=== PATIENT | female | born 1960 | race Caucasian/White ===

== ENCOUNTER 2016-06-26 04:35 | Emergency (ER) | payer OTHER ==
[~2016-06-26] VITALS: Ht 154.9 cm; Wt 65.0 kg
[~2016-06-26 04:35] MED LIST: ADVAI250I INH; ALBU6.7H INH; ALBU8I INH; PRED5 PO; SYMB160A INH; ZITH250T PO
[2016-06-26 04:40] VITALS: BP 138/99; PULSE 102; RESP 16; TEMP 98.1; O2SAT 95
[2016-06-26] MEDS ORDERED: ALBU6.7H INH (04:48)
--- NOTE | 2016-06-26 04:54 | PD ---
HPI Chief Complaint: Injury Time Seen by Provider: 04:49 Travel History International Travel<30 days: No Contact w/Intl Traveler<30days: No Traveled to known affect area: No History of Present Illness HPI 55-year-old female in [facility] woke up for a couple for a cold right foot. She called EMS. He is diabetic. She smokes tobacco. She tried wrapping her feet with toilet paper which was marginally helpful. Temperature outside reported to be 43 degrees. PFSH Past Medical History Arthritis: Yes Asthma: Yes Autoimmune Disease: No Blood Disorders: No Anxiety: No Depression: No Heart Rhythm Problems: No Cancer: No Cardiovascular Problems: Yes (See EMR) High Cholesterol: No Chemotherapy: No Chest Pain: Yes Congestive Heart Failure: No COPD: Yes Cerebrovascular Accident: No Diabetes: Yes Patient Takes Glucophage: No Diminished Hearing: No Endocrine: Yes Gastrointestinal Disorders: No GERD: No Glaucoma: No Genitourinary: No Headaches: No Hepatitis: No Hiatal Hernia: No Hypertension: Yes Immune Disorder: No Implanted Vascular Access Dvce: No Kidney Stones: No Musculoskeletal: Yes Neurologic: Yes Psychiatric: Yes (Reported history of treatment for depression, Schizophrenia, paranoid type) Reproductive: No Respiratory: Yes (COPD) Immunizations Current: No Migraines: No Myocardial Infarction: No Pneumonia: Yes Radiation Therapy: No Renal Failure: No Seizures: No Sickle Cell Disease: No Sleep Apnea: No Thyroid Disease: No Ulcer: No PNEUMOCCOCAL Vaccine (Year): 1 ?: Not Menopausal: Yes : 1 Para: 1 Past Surgical History Abdominal Surgery: Yes AICD: No Appendectomy: Yes Arteriovenous Shunt: No Cardiac Surgery: No Section: Yes (1986) Cholecystectomy: No Ear Surgery: No Endocrine Surgery: No Eye Surgery: No Genitourinary Surgery: No Gynecologic Surgery: Yes Insulin Pump: No Joint Replacement: No Neurologic Surgery: Yes (HX. SKULL FX) Oral Surgery: Yes Pacemaker: No Thoracic Surgery: No Tonsillectomy: Yes Other Surgery: Yes (RIGHT FOREARM SUTURES) Social History Alcohol Use: No Tobacco Use: Yes (1 PPD) Substance Use: No Allergies-Medications (Allergen,Severity, Reaction): Coded Allergies: Iodinated Contrast Media (Verified Allergy, Severe, BLACKS OUT, 06/26/16) Sulfa (Verified Allergy, Severe, HEADACHES, NAUSEA, 06/26/16) Reported Meds & Prescriptions Reported Meds & Active Scripts Active Reported Proventil Hfa 6.7 GM Inh (Albuterol Sulfate) 90 Mcg/Act Aer 2 Puff INH Q4-6H PRN Review of Systems Except as stated in HPI: all other systems reviewed are Neg General / Constitutional: No: Fever, Chills Physical Exam Narrative GENERAL: 55-year-old female, unkempt SKIN: Warm and dry. HEAD: Atraumatic. Normocephalic. EYES: Pupils equal and round. No scleral icterus. No injection or drainage. CARDIOVASCULAR: Regular rate and rhythm. No murmur appreciated. MUSCULOSKELETAL: No obvious deformities. No clubbing. No cyanosis. 2+ DP bilaterally. NEUROLOGIC: AOx3. CN III-XII normal. Ambulatory. Data Data Last Documented VS Vital Signs Date Time Temp Pulse Resp B/P Pulse Ox O2 Delivery O2 Flow Rate FiO2 06/26/16 04:40 98.1 102 16 138/99 95 VS reviewed Orders Albuterol Hfa Inh (Proair Hfa Inh) (06/26/16 05:00) MDM Medical Decision Making Medical Screen Exam Complete: Yes Emergency Medical Condition: Yes Medical Record Reviewed: Yes Differential Diagnosis Chilbains, hatch bite, arterial occlusion, claudication Narrative Course Vasculature intact. Feet warm to palpation. Sensation intact about the feet. Socks provided. Diagnosis Primary Impression: chronic homelessness Additional Impression: Cold feet Referrals: Primary Care Physician 2 days Additional Instructions: You have a choice when it comes to health care, and we are glad that you chose [facility]. Hopefully, we have met your expectations on today's visit. You are welcome to return to [facility] at any time, as we are committed to meeting the health care needs of our community. Med/Other Pt SpecificInfo: No Change to Meds Disposition: 01 DISCHARGE HOME Condition: Stable Everton Polanco MD Jun 26, 2016 04:54
[2016-06-26] MEDS ORDERED: ALBUTEROL SULFATE 90 MCG/ACT HFA 8 GM INHALER INH ONE (05:00)
== END 2016-06-26 05:35 | disposition home or self-care (01) ==
LOC: NEPC 04:35
DX: R20.8 Other disturbances of skin sensation (principal); E11.9 Type 2 diabetes mellitus without complications; J45.909 Unspecified asthma, uncomplicated; J44.9 Chronic obstructive pulmonary disease, unspecified; I10 Essential (primary) hypertension; F17.210 Nicotine dependence, cigarettes, uncomplicated; Z59.0 Homelessness
CPT/HCPCS: 99283

== ENCOUNTER 2017-02-09 02:10 | Emergency (ER) | payer OTHER ==
[~2017-02-09] VITALS: Ht 152.4 cm; Wt 57.0 kg
[~2017-02-09 02:10] MED LIST changes: -ADVAI250I INH; -ALBU8I INH; -PRED5 PO; -SYMB160A INH; -ZITH250T PO
[2017-02-09] MEDS ORDERED: SODIUM CHLORIDE 0.9% FLUSH 10 ML FLUSH IV FLUSH PRN (02:30)
--- NOTE | 2017-02-09 02:32 | PD ---
HPI Chief Complaint: Abdominal Pain Time Seen by Provider: 02:32 Travel History International Travel<30 days: No Contact w/Intl Traveler<30days: No Traveled to known affect area: No History of Present Illness HPI Patient is a 56-year-old homeless female presents emergency Department with abdominal pain. Patient states she's been coughing and coughed hard enough that she's noticed a lump on her stomach. She called 911 today. She said mild nausea without vomiting no diarrhea no constipation no fevers recently. She also has several other request that she have a breathing treatment for her cough , but she thinks she is coming down with a cold, and a rash. Symptoms started just prior to arrival, PFSH Past Medical History Arthritis: Yes Asthma: Yes Autoimmune Disease: No Blood Disorders: No Anxiety: No Depression: No Heart Rhythm Problems: No Cancer: No Cardiovascular Problems: Yes High Cholesterol: No Chemotherapy: No Chest Pain: Yes Congestive Heart Failure: No COPD: Yes Cerebrovascular Accident: No Diabetes: Yes Patient Takes Glucophage: No Diminished Hearing: No Endocrine: Yes Gastrointestinal Disorders: No GERD: No Glaucoma: No Genitourinary: No Headaches: No Hepatitis: No Hiatal Hernia: No Hypertension: Yes Immune Disorder: No Implanted Vascular Access Dvce: No Kidney Stones: No Musculoskeletal: Yes Neurologic: Yes Psychiatric: Yes (Reported history of treatment for depression, Schizophrenia, paranoid type) Reproductive: No Respiratory: Yes (COPD) Immunizations Current: No Migraines: No Myocardial Infarction: No Pneumonia: Yes Radiation Therapy: No Renal Failure: No Seizures: No Sickle Cell Disease: No Sleep Apnea: No Thyroid Disease: No Ulcer: No Tetanus Vaccination: > 5 Years Influenza Vaccination: Yes PNEUMOCCOCAL Vaccine (Year): 1 Menopausal: Yes : 1 Para: 1 Past Surgical History Abdominal Surgery: Yes AICD: No Appendectomy: Yes Arteriovenous Shunt: No Cardiac Surgery: No Section: Yes (1986) Cholecystectomy: No Ear Surgery: No Endocrine Surgery: No Eye Surgery: No Genitourinary Surgery: No Gynecologic Surgery: Yes Insulin Pump: No Joint Replacement: No Neurologic Surgery: Yes (HX. SKULL FX) Oral Surgery: Yes Pacemaker: No Thoracic Surgery: No Tonsillectomy: Yes Other Surgery: Yes (RIGHT FOREARM SUTURES) Social History Alcohol Use: No Tobacco Use: Yes (1 PPD) Substance Use: Yes (K2) Allergies-Medications (Allergen,Severity, Reaction): Coded Allergies: Iodinated Contrast- Oral and IV Dye (Unverified Allergy, Severe, BLACKS OUT, 02/09/17) Sulfa (Sulfonamide Antibiotics) (Unverified Allergy, Severe, HEADACHES, NAUSEA, 02/09/17) Reported Meds & Prescriptions Reported Meds & Active Scripts Active No Active Prescriptions or Reported Medications Review of Systems Except as stated in HPI: all other systems reviewed are Neg Physical Exam Narrative GENERAL: Well-developed, unkempt, minimal discomfort. SKIN: Focused skin assessment warm/dry. HEAD: Atraumatic. Normocephalic. EYES: Pupils equal and round. No scleral icterus. No injection or drainage. ENT: No nasal bleeding or discharge. Mucous membranes pink and moist. NECK: Trachea midline. No JVD. CARDIOVASCULAR: Regular rate and rhythm. No murmur appreciated. RESPIRATORY: No accessory muscle use. Clear to auscultation. Breath sounds equal bilaterally. GASTROINTESTINAL: Abdomen soft, non-tender, there is a large midline abdominal hernia approximately the size of a basketball, was easily reduced manually without pain medication. Patient states she felt instantly better afterwards.. Hepatic and splenic margins not palpable. MUSCULOSKELETAL: No obvious deformities. No clubbing. No cyanosis. No edema. NEUROLOGICAL: Awake and alert. No obvious cranial nerve deficits. Motor grossly within normal limits. Normal speech. PSYCHIATRIC: Appropriate mood and affect; insight and judgment normal. Data Data Last Documented VS Vital Signs Date Time Temp Pulse Resp B/P (MAP) Pulse Ox O2 Delivery O2 Flow Rate FiO2 02/09/17 04:14 02/09/17 02:37 18 95 Room Air 02/09/17 02:37 98.0 95 Orders Orders Complete Blood Count With Diff (02/09/17 02:19) Comprehensive Metabolic Panel (02/09/17 02:19) Lactic Acid (02/09/17 02:19) Prothrombin Time / Inr (Pt) (02/09/17 02:19) Act Partial Throm Time (Ptt) (02/09/17 02:19) Urinalysis - C+S If Indicated (02/09/17 02:19) Iv Access Insert/Monitor (02/09/17 02:19) Ecg Monitoring (02/09/17 02:19) Oximetry (02/09/17 02:19) Sodium Chloride 0.9% Flush (Ns Flush) (02/09/17 02:30) Electrocardiogram (02/09/17 02:19) Albuterol-Ipratropium Neb (Duoneb Neb) (02/09/17 02:45) Mandatory Outpatient Referral (02/09/17 03:28) Labs Laboratory Tests Test 02/09/17 02:24 02/09/17 02:30 Urine Color YELLOW Urine Turbidity HAZY Urine pH 7.0 Urine Specific [place] 1.017 Urine Protein TRACE mg/dL Urine Glucose (UA) NEG mg/dL Urine Ketones NEG mg/dL Urine Occult Blood SMALL Urine Nitrite NEG Urine Bilirubin NEG Urine Urobilinogen LESS THAN 2.0 MG/DL Urine Leukocyte Esterase NEG Urine RBC 17 /hpf Urine WBC 2 /hpf Urine Squamous Epithelial Cells <1 /hpf Urine Amorphous Sediment RARE Urine Mucus FEW /lpf Microscopic Urinalysis Comment CULT NOT INDICATED White Blood Count 11.9 TH/MM3 Red Blood Count 5.50 MIL/MM3 Hemoglobin 17.3 GM/DL Hematocrit 51.7 % Mean Corpuscular Volume 93.9 FL Mean Corpuscular Hemoglobin 31.4 PG Mean Corpuscular Hemoglobin Concent 33.5 % Red Cell Distribution Width 14.5 % Platelet Count 270 TH/MM3 Mean Platelet Volume 7.3 FL Neutrophils (%) (Auto) 68.9 % Lymphocytes (%) (Auto) 21.4 % Monocytes (%) (Auto) 5.7 % Eosinophils (%) (Auto) 3.3 % Basophils (%) (Auto) 0.7 % Neutrophils # (Auto) 8.2 TH/MM3 Lymphocytes # (Auto) 2.6 TH/MM3 Monocytes # (Auto) 0.7 TH/MM3 Eosinophils # (Auto) 0.4 TH/MM3 Basophils # (Auto) 0.1 TH/MM3 CBC Comment DIFF FINAL Differential Comment Prothrombin Time 10.4 SEC Prothromb Time International Ratio 0.9 RATIO Activated Partial Thromboplast Time 28.1 SEC Blood Urea Nitrogen 21 MG/DL Creatinine 0.53 MG/DL Random Glucose 81 MG/DL Total Protein 7.4 GM/DL Albumin 3.0 GM/DL Calcium Level 8.7 MG/DL Alkaline Phosphatase 96 U/L Aspartate Amino Transf (AST/SGOT) 43 U/L Alanine Aminotransferase (ALT/SGPT) 19 U/L Total Bilirubin 0.3 MG/DL Sodium Level 138 MEQ/L Potassium Level 5.0 MEQ/L Chloride Level 101 MEQ/L Carbon Dioxide Level 33.5 MEQ/L Anion Gap 4 MEQ/L Estimat Glomerular Filtration Rate 119 ML/MIN Lactic Acid Level 0.9 mmol/L MDM Medical Decision Making Medical Screen Exam Complete: Yes Emergency Medical Condition: Yes Differential Diagnosis Hernia, COPD, homelessness, acute abdomen unlikely. Narrative Course Patient roomed emergency department, hernia was reduced, discussed need for follow-up with a primary care physician and surgeon. She was given a breathing treatment at her request. Her lungs were clear and oxygenation was adequate. She is stable for discharge at this time. Diagnosis Primary Impression: Abdominal pain Additional Impression: Ventral hernia Referrals: Dio Sauceda MD Patient Assistance Program Scripts No Active Prescriptions or Reported Meds Disposition: 01 DISCHARGE HOME Condition: Stable Nikolas Olivier MD Feb 09, 2017 02:32
[2017-02-09 02:37] VITALS: BP 157/85; PULSE 95; RESP 18; TEMP 98; O2SAT 95
[2017-02-09 02:45] LABS: AUTOMATED NEUTROPHIL # 8.2 TH/MM3 (1.8-7.7); BASOPHIL # 0.1 TH/MM3 (0-0.2); BASOPHIL % 0.7 % (0.0-2.0); EOSINOPHIL # 0.4 TH/MM3 (0-0.4); EOSINOPHIL % 3.3 % (0.0-4.0); HEMATOCRIT 51.7 % (35.0-46.0); HEMO FLAGS DIFF FINAL; LYMPH % 21.4 % (9.0-44.0); LYMPHOCYTE # 2.6 TH/MM3 (1.0-4.8); MEAN CELL VOLUME 93.9 FL (80.0-100.0); MEAN CORPUSCULAR HEMOGLOBIN 31.4 PG (27.0-34.0); MEAN CORPUSCULAR HGB CONC 33.5 % (32.0-36.0); MONO % 5.7 % (0.0-8.0); NEUT % 68.9 % (16.0-70.0); PLATELET COUNT 270 TH/MM3 (150-450); RED CELL DISTRIBUTION WIDTH 14.5 % (11.6-17.2); WHITE BLOOD COUNT 11.9 TH/MM3 (4.0-11.0)
[2017-02-09] MEDS ORDERED: RESP: ALBUTEROL 2.5 MG/IPRATROPIUM 0.5 MG NEB (SCH) NEB ONE (02:45)
[2017-02-09 02:47] LABS: BLOOD, URINE SMALL (NEG); COMMENT (UR) CULT NOT INDICATED; CULTURE IF INDICATED CULT NOT INDICATED; GLUCOSE,URINE NEG (NEG); KETONE, URINE NEG (NEG); MUCUS URINE FEW /lpf (OCC); NITRITE,URINE NEG (NEG); SQUAMOUS EPITHELIAL CELL URINE <1 /hpf (0-5); URINE COLOR YELLOW (YELLW/STRAW)
[2017-02-09 03:10] LABS: APTT (PATIENT) 28.1 SEC (24.3-30.1); INTERNATIONAL NORMALIZED RATIO 0.9 RATIO; PROTHROMBIN TIME - PATIENT 10.4 SEC (9.8-11.6)
[2017-02-09 03:15] LABS: ALKALINE PHOSPHATASE 96 U/L (45-117); TOTAL BILIRUBIN ADULT 0.3 MG/DL (0.2-1.0)
[2017-02-09 03:17] LABS: ALT (GPT) 19 U/L (10-53); ANION GAP 4 MEQ/L (5-15); AST (GOT) 43 U/L (15-37); BICARBONATE 33.5 MEQ/L (21.0-32.0); BLOOD UREA NITROGEN 21 MG/DL (7-18); CHLORIDE 101 MEQ/L (98-107); GLOMERULAR FILTRATION RATE 119 ML/MIN (>89); SODIUM (NA) 138 MEQ/L (136-145)
--- NOTE | 2017-02-09 18:18 | EKG ---
Date Performed: 02/09/2017 Time Performed: 02:34:40 PTAGE: 56 years EKG: Sinus rhythm WITH MARKED SINUS ARRHYTHMIA BORDERLINE ECG SINCE PREVIOUS TRACING 01/27/2016, SINUS ARRHYTHMIA IS NEW. PREVIOUS TRACIN01/27/2016 03.37 DOCTOR: Rodri Starr Interpretating Date/Time 02/09/2017 18:16:47
== END 2017-02-09 04:15 | disposition home or self-care (01) ==
LOC: NEPE 02:10
DX: K43.9 Ventral hernia without obstruction or gangrene (principal); R05 Cough; I49.8 Other specified cardiac arrhythmias; M19.90 Unspecified osteoarthritis, unspecified site; J44.9 Chronic obstructive pulmonary disease, unspecified; E11.9 Type 2 diabetes mellitus without complications; I10 Essential (primary) hypertension; F20.9 Schizophrenia, unspecified; F17.200 Nicotine dependence, unspecified, uncomplicated
CPT/HCPCS: 80053; 81001; 83605; 85025; 85610; 85730; 93005; 94664; 99284

== ENCOUNTER 2017-02-20 18:43 | Emergency (ER) | payer OTHER ==
[~2017-02-20] VITALS: Ht 154.9 cm; Wt 50.0 kg
[2017-02-20 18:47] VITALS: BP 186/101; TEMP 98.4; O2SAT 95
--- NOTE | 2017-02-20 19:09 | PD ---
Physical Exam Date Seen by Provider: Feb 20, 2017 Time Seen by Provider: 19:07 Narrative 56 yo female here for evaluation of lower leg swelling and pain. Has had this for a few days. Possible insect bites. having drainage as well. Erythematous and painful. No fevers, chills or sweats. Vitals stable in triage. Awaiting bed placement. Data Data Last Documented VS Vital Signs Date Time Temp Pulse Resp B/P (MAP) Pulse Ox O2 Delivery O2 Flow Rate FiO2 02/20/17 18:47 98.4 100 16 186/101 (129) 95 MDM Medical Record Reviewed: Yes Supervised Visit with DEBBY: No Scripts No Active Prescriptions or Reported Meds Mike Hogan Feb 20, 2017 19:09
--- NOTE | 2017-02-20 19:42 | PD ---
HPI Chief Complaint: Skin Problem Time Seen by Provider: 19:41 Travel History International Travel<30 days: No Contact w/Intl Traveler<30days: No Traveled to known affect area: No History of Present Illness HPI 56-year-old female who is homeless, presents to the emergency department for evaluation of what she believes is an infection on her feet. Patient walks a lot. She wears flip-flops. She does have scattered lesions over her feet and lower extremities. She denies any injury. No fever or chills. States the pain is an 8 out of 10 in her feet and she is unable to walk due to this pain, however the patient walked into the emergency department, pushing a large cart. States this has been ongoing for weeks. She denies any other symptoms at this time. PFSH Past Medical History Arthritis: Yes Asthma: Yes Autoimmune Disease: No Blood Disorders: No Anxiety: No Depression: No Heart Rhythm Problems: No Cancer: No Cardiovascular Problems: Yes High Cholesterol: No Chemotherapy: No Chest Pain: Yes Congestive Heart Failure: No COPD: Yes Cerebrovascular Accident: No Diabetes: Yes Patient Takes Glucophage: No Diminished Hearing: No Endocrine: Yes Gastrointestinal Disorders: No GERD: No Glaucoma: No Genitourinary: No Headaches: No Hepatitis: No Hiatal Hernia: No Hypertension: Yes Immune Disorder: No Implanted Vascular Access Dvce: No Kidney Stones: No Musculoskeletal: Yes Neurologic: Yes Psychiatric: Yes (Reported history of treatment for depression, Schizophrenia, paranoid type) Reproductive: No Respiratory: Yes (COPD) Immunizations Current: No Migraines: No Myocardial Infarction: No Pneumonia: Yes Radiation Therapy: No Renal Failure: No Seizures: No Sickle Cell Disease: No Sleep Apnea: No Thyroid Disease: No Ulcer: No Tetanus Vaccination: > 5 Years PNEUMOCCOCAL Vaccine (Year): 1 Menopausal: Yes : 1 Para: 1 Past Surgical History Abdominal Surgery: Yes AICD: No Appendectomy: Yes Arteriovenous Shunt: No Cardiac Surgery: No Section: Yes (1986) Cholecystectomy: No Ear Surgery: No Endocrine Surgery: No Eye Surgery: No Genitourinary Surgery: No Gynecologic Surgery: Yes Insulin Pump: No Joint Replacement: No Neurologic Surgery: Yes (HX. SKULL FX) Oral Surgery: Yes Pacemaker: No Thoracic Surgery: No Tonsillectomy: Yes Other Surgery: Yes (RIGHT FOREARM SUTURES) Social History Alcohol Use: No Tobacco Use: Yes (1 PPD) Substance Use: Yes (K2) Allergies-Medications (Allergen,Severity, Reaction): Coded Allergies: Iodinated Contrast- Oral and IV Dye (Unverified Allergy, Severe, BLACKS OUT, 02/20/17) Sulfa (Sulfonamide Antibiotics) (Unverified Allergy, Severe, HEADACHES, NAUSEA, 02/20/17) Reported Meds & Prescriptions Reported Meds & Active Scripts Active Clindamycin (Clindamycin HCl) 150 Mg Cap 300 Mg PO Q6H 10 Days Review of Systems Except as stated in HPI: all other systems reviewed are Neg Physical Exam Narrative GENERAL: Unkempt female patient, ambulatory and in no acute distress. SKIN: Focused skin assessment warm/dry. Patient does have scabbed lesions over the dorsal feet and lower extremities. Mild erythema surrounding them. HEAD: Normocephalic. EYES: No scleral icterus. No injection or drainage. NECK: Supple, trachea midline. No JVD or lymphadenopathy. CARDIOVASCULAR: Regular rate and rhythm without murmurs, gallops, or rubs. RESPIRATORY: Breath sounds equal bilaterally. No accessory muscle use. GASTROINTESTINAL: Abdomen rotund, soft. MUSCULOSKELETAL: No cyanosis. Patient has 1+ edema of the bilateral lower extremities. It is nonpitting. There is mild erythema surrounding the scabbed lesions. No fluctuance. No drainage. BACK: Nontender without obvious deformity. No CVA tenderness. Data Data Last Documented VS Vital Signs Date Time Temp Pulse Resp B/P (MAP) Pulse Ox O2 Delivery O2 Flow Rate FiO2 02/20/17 19:59 02/20/17 18:47 98.4 100 16 95 Orders Orders Clindamycin (Cleocin) (02/20/17 19:45) Ketorolac Inj (Toradol Inj) (02/20/17 19:45) [facility] Medical Decision Making Medical Screen Exam Complete: Yes Emergency Medical Condition: Yes Medical Record Reviewed: Yes Differential Diagnosis Cellulitis versus folliculitis versus insect bites versus contact dermatitis Narrative Course 56-year-old female presents to emergency department for evaluation of bilateral foot pain. Patient is ambulatory without difficulty. I have counseled her on wound care at the scabbed lesions of her lower extremities. I will treat her for cellulitis due to the localized blanchable erythema associated with them. I 've also encouraged her to elevate her lower extremities due to the trace edema. She is given a first dose of antibiotics here. She'll be discharged at this time with instruction to return immediately with any acute worsening of symptoms. Diagnosis Primary Impression: Bilateral lower leg cellulitis Additional Impressions: Skin lesion of left lower extremity Skin lesion of right lower extremity chronic homelessness Referrals: Primary Care Physician Patient Instructions: Acute Wound Care (GEN), General Instructions Additional Instructions: Elevate lower extremities Keep wounds clean Follow-up with a primary care provider Start antibiotic in the morning and take it until it is all gone Return immediately to the emergency department with any acute worsening of symptoms Med/Other Pt SpecificInfo: Prescription(s) given Scripts Clindamycin (Clindamycin) 150 Mg Cap 300 MG PO Q6H for Infection for 10 Days, #80 CAP 0 Refills Prov: Lilliam Case 02/20/17 Disposition: 01 DISCHARGE HOME Condition: Stable Lilliam Case Feb 20, 2017 19:42
[2017-02-20] MEDS ORDERED: KETOROLAC TROMETHAMINE 60 MG/2 ML (IM) VIAL IM ONE (19:45)
[2017-02-20] MEDS ORDERED: CLINDAMYCIN 150 MG CAP PO ONE (19:45)
[2017-02-20] MEDS ORDERED: CLIN1CAP5 PO (19:48)
== END 2017-02-20 20:00 | disposition home or self-care (01) ==
LOC: NEPK 18:43
DX: L03.115 Cellulitis of right lower limb (principal); L03.116 Cellulitis of left lower limb; F17.200 Nicotine dependence, unspecified, uncomplicated; Z59.0 Homelessness
CPT/HCPCS: 96372; 99284; J1885

== ENCOUNTER 2017-06-29 09:06 | Inpatient (IN) | payer OTHER ==
[~2017-06-29] VITALS: Ht 160 cm; Wt 60.5 kg
[2017-06-29] VITALS (22 sets, daily range): BP systolic 63–98; BP diastolic 25–63; PULSE 87–148; RESP 12–21; TEMP 96.4–99.6; O2SAT 91–100
[~2017-06-29 09:06] MED LIST changes: -ALBU6.7H INH; +CLIN150C14 PO
[2017-06-29] MEDS ORDERED: ETOMIDATE 40 MG/20 ML VIAL ONE (09:23)
[2017-06-29] MEDS ORDERED: ROCURONIUM INJ 50 MG/5 ML VIAL ONE (09:24)
[2017-06-29] MEDS ORDERED: NOREPINEPHRINE-DEXTROSE DRIP 250 ML IV PRN (09:45)
[2017-06-29] MEDS ORDERED: TERBUTALINE INJ 1 MG/ML AMP SQ PRN (09:45)
--- NOTE | 2017-06-29 10:13 | RADRPT ---
EXAM DATE/TIME: 06/29/2017 09:39 CORRECTION Corrected on: June 29, 2017; CORRECTION Corrected on: June 29, 2017; [facility] COMPARISON: No previous studies available for comparison. INDICATIONS : Post intubation. MEDICAL HISTORY : none known SURGICAL HISTORY : none known ENCOUNTER: Initial ACUITY: 1 day PAIN SCORE: Non-responsive. LOCATION: Bilateral chest FINDINGS: A single AP supine portable view of the chest was obtained and demonstrates an endotracheal tube in p lace with the tip approximately 4 cm above the miracle. There has been placement of a nasogastric tube which is seen coursing through the esophagus and into the stomach. The lungs appear hyperinflated wi th hazy opacity and airspace disease in both lungs right greater than left. The heart size at the upp er limits of normal. There is no definite effusion. The bony thorax is intact. There is a small RIGHT apical pneumothorax. CONCLUSION: 1. Small RIGHT apical pneumothorax. 2. Endotracheal tube and nasogastric tube in place. 3. The lungs are hyperinflated with hazy airspace disease. Luciano Sim MD on June 29, 2017 at 10:08 Board Certified Radiologist. This report was verified electronically. Luciano Sim MD on June 29, 2017 at 14:59 Board Certified Radiologist. This report was verified electronically. Luciano Sim MD on June 29, 2017 at 15:07 Board Certified Radiologist. This report was verified electronically.
[2017-06-29 10:14] LABS: AUTOMATED NEUTROPHIL # 3.3 TH/MM3 (1.8-7.7); BASOPHIL % 0.4 % (0.0-2.0); EOSINOPHIL % 0.5 % (0.0-4.0); HEMATOCRIT 46.8 % (35.0-46.0); HEMOGLOBIN 14.7 GM/DL (11.6-15.3); LYMPH % 53.7 % (9.0-44.0); LYMPHOCYTE # 4.3 TH/MM3 (1.0-4.8); MEAN CELL VOLUME 98.9 FL (80.0-100.0); MEAN CORPUSCULAR HGB CONC 31.3 % (32.0-36.0); MEAN PLATELET VOLUME 7.4 FL (7.0-11.0); MONO % 3.9 % (0.0-8.0); MONOCYTE # 0.3 TH/MM3 (0-0.9); NEUT % 41.5 % (16.0-70.0); PLATELET COUNT 189 TH/MM3 (150-450); RED BLOOD COUNT 4.73 MIL/MM3 (4.00-5.30); RED CELL DISTRIBUTION WIDTH 16.8 % (11.6-17.2)
[2017-06-29] MEDS ORDERED: RESP: ALBUTEROL 2.5 MG/IPRATROPIUM 0.5 MG NEB (PRN) INH (10:15)
[2017-06-29 10:22] LABS: BACTERIA, URINE OCC /hpf; BILIRUBIN, URINE NEG (NEG); BLOOD, URINE TRACE (NEG); GLUCOSE,URINE NEG (NEG); HYALINE CAST, URINE 32 /lpf (RARE); KETONE, URINE NEG (NEG); MUCUS URINE MANY /lpf (OCC); NITRITE,URINE NEG (NEG); SQUAMOUS EPITHELIAL CELL URINE 2 /hpf (0-5); URINE COLOR YELLOW (YELLW/STRAW); URINE LEUKOCYTE ESTERASE MOD (NEG)
[2017-06-29 10:25] LABS: INTERNATIONAL NORMALIZED RATIO 1.3 RATIO; PROTHROMBIN TIME - PATIENT 13.3 SEC (9.8-11.6)
[2017-06-29 10:42] LABS: ALBUMIN 2.2 GM/DL (3.4-5.0); AST (GOT) 239 U/L (15-37); BICARBONATE 23.4 MEQ/L (21.0-32.0); BLOOD UREA NITROGEN 24 MG/DL (7-18); CALCIUM 8.3 MG/DL (8.5-10.1); CHLORIDE 92 MEQ/L (98-107); GLOMERULAR FILTRATION RATE 62 ML/MIN (>89); GLUCOSE,RANDOM 321 MG/DL (74-106); MAGNESIUM 2.5 MG/DL (1.5-2.5); SODIUM (NA) 131 MEQ/L (136-145)
[2017-06-29 10:43] LABS: ALT (GPT) 191 U/L (10-53)
[2017-06-29 10:46] LABS: ALKALINE PHOSPHATASE 84 U/L (45-117); TOTAL BILIRUBIN ADULT 0.1 MG/DL (0.2-1.0); TOTAL PROTEIN 5.2 GM/DL (6.4-8.2); TROPONIN I 0.19 NG/ML (0.02-0.05)
[2017-06-29 10:47] LABS: CORRECTED NUCLEATED RBC 1 /100 WBC (0-0); LYMPHOCYTES 40 % (9-44); MONOCYTES 10 % (0-8); MYELOCYTES 2 % (0-0); NUCLEATED RED BLOOD CELL 1 (0-0); OVALOCYTES 1+ (NORMAL); POLYS (SEG NEUTROPHILS) 48 % (16-70)
[2017-06-29 10:51] LABS: LACTIC ACID SEPSIS PROTOCOL 11.8 mmol/L (0.4-2.0)
[2017-06-29] MEDS ORDERED: HYDROCORTISONE SOD SUCCINATE 100 MG VIAL IV PUSH ONE (11:00)
--- NOTE | 2017-06-29 11:28 | PD ---
HPI Chief Complaint: Code Blue Time Seen by Provider: 09:34 Travel History International Travel<30 days: No Contact w/Intl Traveler<30days: No Traveled to known affect area: No History of Present Illness HPI 56-year-old female presents by ambulance as cardiac arrest. She was last seen normal 30 minutes prior to their arrival. She was found by fire slumped over and she was asystole and rhythm. She was given bicarbonate and epi prior to arrival. Combitube was placed. History is otherwise limited based on clinical acuity. [facility] Past Medical History Narrative Medical Records state COPD, diabetes, hypertension, schizophrenia based on her name ?: Unknown Past Surgical History Narrative Surgical Records state , appendectomy, tonsillectomy Social History Tobacco Use: Yes (by records) Allergies-Medications (Allergen,Severity, Reaction): Coded Allergies: No Allergy Information Available (Unverified , 06/29/17) Reported Meds & Prescriptions Reported Meds & Active Scripts Active Active Prescriptions or Reported Medications Unobtainable Review of Systems ROS Limitations: Clinical Condition Physical Exam Exam Limitations: Clinical Condition Narrative General: In severe distress, focused exam performed Skin: Cool and dry Eyes: Pupils equal Neck: No JVD, trachea midline Cardiovascular: CPR in progress Respiratory: Decreased breath sounds bilaterally with bagging by Combitube Abdomen: Large midline hernia noted Extremities: No significant edema noted Neuro: Unresponsive Data Data Last Documented VS Vital Signs Date Time Temp Pulse Resp B/P (MAP) Pulse Ox O2 Delivery O2 Flow Rate FiO2 06/29/17 09:30 99 100 Orders Orders Etomidate Inj (Amidate Inj) (06/29/17 09:23) Rocuronium Inj (Zemuron Inj) (06/29/17 09:24) Electrocardiogram (06/29/17 09:34) Complete Blood Count With Diff (06/29/17 09:34) Comprehensive Metabolic Panel (06/29/17 09:34) Prothrombin Time / Inr (Pt) (06/29/17 09:34) Act Partial Throm Time (Ptt) (06/29/17 09:34) Lactic Acid Sepsis Protocol (06/29/17 09:34) Magnesium (Mg) (06/29/17 09:34) Phosphorus (Po4) (06/29/17 09:34) Lipase (06/29/17 09:34) Ckmb (Isoenzyme) Profile (06/29/17 09:34) Troponin I (06/29/17 09:34) Urinalysis - C+S If Indicated (06/29/17 09:34) Influenzae A/B Antigen (06/29/17 09:34) Blood Culture (06/29/17 09:34) Chest, Single Ap (06/29/17 09:34) Ecg Monitoring (06/29/17 09:34) Iv Access Insert/Monitor (06/29/17 09:34) Oximetry (06/29/17 09:34) Oxygen Administration (06/29/17 09:34) Urinary Catheter Insert/Apply (06/29/17 09:34) Ct Abd/Pel W Iv Contrast(Rout) (06/29/17 09:34) Ct Brain W/O Iv Contrast(Rout) (06/29/17 09:34) Ct Thorax/ Chest W Iv Contrast (06/29/17 ) Norepinephrine-Dextrose Drip (Levophed-D (06/29/17 09:45) Terbutaline Inj (Brethine Inj) (06/29/17 09:45) Admit Order (Ed Use Only) (06/29/17 09:55) CKMB (06/29/17 10:00) CKMB% (06/29/17 10:00) MDM Medical Decision Making Medical Screen Exam Complete: Yes Emergency Medical Condition: Yes Medical Record Reviewed: Yes (patient's name Lizbeth Block with [id number] medical record number was used to look up past medical history) Interpretation(s) CBC reviewed and normal. BMP did not result before patient went to ICU Last 24 hours Impressions Chest X-Ray 06/29/17933 Signed Impressions: Service Date/Time: June 09:39 - CONCLUSION: 1. Endotracheal tube and nasogastric tube in place. 2. The lungs are hyperinflated with hazy airspace disease. Luciano Sim MD EKG is A. fib in the 160s with concerning findings that was sent to cardiology Differential Diagnosis IN, pneumothorax, cardiopulmonary arrest, intra-abdominal injury, head bleed, sepsis.... Narrative Course Patient arrived in asystole. CPR was continued and epinephrine, calcium, bicarbonate given. She regained pulse after a couple rounds. Combitube was switched to endotracheal tube. Bedside echocardiogram showed no pericardial effusion. EKG showed A. fib with concerning findings. Discuss with cardiology and not STEMI candidate. she was started on Levophed and trying to titrate up to get a blood pressure when She went back into PEA and after one round of epinephrine and regained pulse. She will be given amiodarone for her A. fib. She had a good blood pressure on Levophed. At this time Dr. Darnell from the ICU was here and took the patient upstairs. Her workup is pending other than CBC. He will placed central line upstairs and continue care. Critical Care Narrative Aggregate critical care time was 65 minutes. Time to perform other separately billable procedures was not included in the critical care time. My time did not include minutes spent treating any other patients simultaneously or on activities that did not directly contribute to the patient's treatment. The services I provided to this patient were to treat and/or prevent clinically significant deterioration that could result in: Shock, I provided critical care services requiring my management, as noted below: Chart data review, documentation time, medication orders and management, vital sign assessments/reviewing monitor data, ordering and reviewing lab tests, ordering and interpreting/reviewing x-rays and diagnostic studies, care of the patient and discussion of the patient with the admitting physicians. Procedures Procedure Narrative Emergently performed: INTUBATION: The patient was put in optimal position for the procedure. The patient was intubated with a 8-0 cuffed endotracheal tube without medications. Tube placement was confirmed by visualization of the tube and balloon passing through the cords, capnometry and subsequent chest x-ray. Breath sounds were equal and well aerated bilaterally postintubation. No breath sounds over stomach. Patient tolerated procedure well. Physician Communication Physician Communication dr castanon sent ekg and states not stemi, repeat when heart rate improved dr floyd came to bedside and given report in er Diagnosis Primary Impression: Cardiopulmonary arrest Additional Impression: Respiratory failure Qualified Codes: J96.90 - Respiratory failure, unspecified, unspecified whether with hypoxia or hypercapnia Admitting Information Admitting Physician Requests: Admit Scripts Unable to Obtain Active Prescriptions or Reported Meds Consuelo Sandy MD Jun 29, 2017 11:27
[2017-06-29] MEDS ORDERED: EPINEPHrine 2 MG/D5W 250 ML IV PRN ×2 (12:15)
--- NOTE | 2017-06-29 12:53 | RADRPT ---
EXAM DATE/TIME: 06/29/2017 12:01 [facility] COMPARISON: CHEST SINGLE AP, June 29, 2017, 9:39. INDICATIONS : Post central line placement, respiratory failure MEDICAL HISTORY : respiratory failure, intubation SURGICAL HISTORY : unobtainable ENCOUNTER: Subsequent ACUITY: 1 day PAIN SCORE: Non-responsive. LOCATION: Bilateral chest FINDINGS: The ET tube and NG tube are well placed. There is a left internal jugular line that extends into the left brachiocephalic vein then is directed superiorly into the right brachiocephalic vein. There is a mild to moderate pneumothorax seen on the right side measuring up to 2.2 cm. The heart size is normal. There may be some shift of the heart and mediastinal structures towards the left. The lungs demonstrate prominence of the interstitium diffusely. CONCLUSION: 1. Mild to moderate right pneumothorax with possible shift of the mediastinal structures towards the left. 2. Diffuse prominence of the interstitium which may represent some mild edema. 3. Left internal jugular line with the tip directed into the right brachiocephalic vein. Goldy Wilkerson MD on June 29, 2017 at 12:44 Board Certified Radiologist. This report was verified electronically.
[2017-06-29] MEDS ORDERED: VANCOMYCIN INJ 1,250 MG in SODIUM CHLOR 0.9% 250 ML INJ 250 ML IV ONE (13:45)
[2017-06-29] MEDS ORDERED: Vancomycin Consult Pharmacy 1 EA OTHER SCH (13:45)
[2017-06-29] MEDS ORDERED: PIPERACIL-TAZO 4.5 GM PREMIX 100 ML IV ONE (13:45)
--- NOTE | 2017-06-29 13:51 | EKG ---
Date Performed: 06/29/2017 Time Performed: 09:15:18 PTAGE: 89 years EKG: ATRIAL FIBRILLATION WITH RAPID VENTRICULAR RESPONSE MARKED RIGHT AXIS DEVIATION RIGHT BUNDL E BRANCH BLOCK MARKED ST ELEVATION, CONSIDER LATERAL INJURY ACUTE ID NO PREVIOUS TRACING DOCTOR: Bryon Jeffery Interpretating Date/Time 06/29/2017 13:50:38
[2017-06-29] MEDS: RESP: ALBUTEROL 2.5 MG/IPRATROPIUM 0.5 MG NEB (SCH) INH ×2 (14:51→20:08)
--- NOTE | 2017-06-29 15:13 | RADRPT ---
EXAM DATE/TIME: 06/29/2017 13:56 [facility] COMPARISON: CHEST SINGLE AP, June 29, 2017, 12:01. INDICATIONS : Chest tube placement. MEDICAL HISTORY : Unobtainable. SURGICAL HISTORY : Chest tube. ENCOUNTER: Subsequent ACUITY: 1 day PAIN SCORE: Non-responsive. LOCATION: Bilateral chest FINDINGS: A single AP supine portable view of the chest was obtained and demonstrates interval placement of a s mall bore right-sided chest tube with the tip projected over the right lung apex. The right pneumotho rax has decreased in size with small basilar component. There is a small amount of subcutaneous emphy sema over the right lateral chest wall. There is mild hazy opacity in the lungs with no mediastinal s hift. The heart size remains within normal limits. There is no distinct effusion. The endotracheal tu be and nasogastric tube remain in place. The left internal jugular central venous line remains in danya ce with an abnormal course again noted with the tip extending cephalad into the right brachiocephalic vein. CONCLUSION: 1. Interval placement of right-sided chest tube with decrease in right pneumothorax with small residu al basilar component. 2. The left internal jugular central venous line remains in place without change. Luciano Sim MD on June 29, 2017 at 15:08 Board Certified Radiologist. This report was verified electronically.
[2017-06-29] MEDS: AMIODARONE INJ 450 MG in SODIUM CHLOR 0.9% (EXCEL) INJ 241 ML IV PRN (15:52)
[2017-06-29] MEDS: NOREPINEPHRINE-DEXTROSE DRIP 250 ML IV PRN ×2 (19:00→21:10)
[2017-06-29] MEDS ORDERED: MISCELLANEOUS NURSING INFORMATION XX SCH (19:30)
[2017-06-29] MEDS ORDERED: CHLORHEXIDINE GLUCONATE 2 % 1 PACK (2 CLOTHS) TOP PRN (19:30)
--- NOTE | 2017-06-29 19:31 | HHI.HP ---
HPI Service Critical Care Medicine Primary Care Physician Unknown Admission Diagnosis cardiac arrest, respiratory failure Diagnosis: Chief Complaint: PEA arrest Travel History International Travel<30 Days: No Contact w/Intl Traveler <30 Da: No Traveled to Known Affected Are: No History of Present Illness This is a 56-year-old female who arrived is imaging to after being found unresponsive and PEA arrest for an unknown period of time. EMS intubated the patient after more than 30 minutes of ACLS, ROSC was obtained in the field. Patient was brought in and again had PEA arrest in the emergency department. After ROSC was obtained I was emergently called and came down immediately to evaluate the patient. The patient on emergent bedside echocardiogram demonstrated severely empty LV filling with collapsible IVC. I gave her 4 L of crystalloid infusion. She was started on levo fed, epinephrine. She was emergently brought to the ICU. I placed arterial line, central line. Resuscitation was ongoing. The patient at no time regained any neurologic exam. Chest x-ray after placing central line demonstrated a large right-sided pneumothorax, contralateral to the sciatic place a central line on. This is most likely due to CPR and rib fractures. I emergently placed chest tube, see separate procedure note for details. I was able to contact a person named Leilani, which is the only phone number the patient had in her purse with her. Pat stated that she was the closest thing the patient had to a friend, and the patient had no family that she know of. Past said that occasionally she would give her warm blankets, or hot meal. Passive the patient was homeless and had no other friends. Pat did tell me that she did not think that the patient would want aggressive life prolonging measures, is much as she knew the patient. Due to her ongoing hemodynamic instability, the patient is too unstable to undergo radiologic imaging to identify source of instability. Review of Systems ROS Limitations: Clinical Condition, Intubated, Altered Mental Status, Unresponsive Past Family Social History Allergies: Coded Allergies: No Allergy Information Available (Unverified , 06/29/17) Past Medical History Unknown and unobtainable secondary clinical condition of the patient Past Surgical History Unknown and unobtainable secondary clinical condition of the patient Reported Medications Unknown and unobtainable secondary clinical condition of the patient Active Ordered Medications See MAR Family History Unknown and unobtainable secondary clinical condition of the patient Social History Unknown and unobtainable secondary clinical condition of the patient Physical Exam Vital Signs Vital Signs Date Time Temp Pulse Resp B/P (MAP) Pulse Ox O2 Delivery O2 Flow Rate FiO2 06/29/17 18:00 93 50 06/29/17 18:00 103 06/29/17 16:00 50 06/29/17 16:00 110 06/29/17 15:52 112 108/67 06/29/17 12:17 91 50 06/29/17 10:20 100 100 06/29/17 10:12 126 16 63/25 (38) 99 06/29/17 10:00 96.4 148 12 92/26 (48) 99 Ventilator 06/29/17 09:30 99 100 Physical Exam GENERAL: Middle-aged female who appears much older than stated age, lying in bed , intubated, unresponsive HEENT: Normocephalic. Atraumatic. Pupils 6 mm, bilaterally, fixed, dilated, nonreactive. NECK: Trachea is midline. There is no JVD. CHEST: Equal chest rise. Coarse breath sounds throughout. CARDIOVASCULAR: Tachycardic rate, irregularly irregular rhythm. ABDOMEN: Soft, nontender, nondistended. No guarding. Large ventral hernia without evidence of incarceration MUSCULOSKELETAL: Pulses 2+. No peripheral edema. Extremities are mottled poorly perfused NEUROLOGICAL: RASS -5. GCS 3. No movement in any extremity deep nailbed pressure. Pupils fixed and dilated. Negative corneals. Negative cough. Negative gag. Negative oculocephalic reflex. Has never received any sedating or paralytic drugs since EMS found her. Does not over breathe the vent. Laboratory Laboratory Tests Test 06/29/17 10:00 06/29/17 10:02 06/29/17 10:45 06/29/17 12:23 White Blood Count 8.0 Red Blood Count 4.73 Hemoglobin 14.7 Hematocrit 46.8 Mean Corpuscular Volume 98.9 Mean Corpuscular Hemoglobin 31.0 Mean Corpuscular Hemoglobin Concent 31.3 Red Cell Distribution Width 16.8 Platelet Count 189 Mean Platelet Volume 7.4 Neutrophils (%) (Auto) 41.5 Lymphocytes (%) (Auto) 53.7 Monocytes (%) (Auto) 3.9 Eosinophils (%) (Auto) 0.5 Basophils (%) (Auto) 0.4 Neutrophils # (Auto) 3.3 Lymphocytes # (Auto) 4.3 Monocytes # (Auto) 0.3 Eosinophils # (Auto) 0.0 Basophils # (Auto) 0.0 CBC Comment AUTO DIFF Differential Total Cells Counted 100 Neutrophils % (Manual) 48 Lymphocytes % 40 Monocytes % 10 Neutrophils # (Manual) 4.0 Myelocytes 2 Nucleated Red Blood Cells 1 Differential Comment FINAL DIFF MANUAL Platelet Estimate NORMAL Platelet Morphology Comment NORMAL Ovalocytes 1+ Prothrombin Time 13.3 Prothromb Time International Ratio 1.3 Activated Partial Thromboplast Time 36.2 Urine Color YELLOW Urine Turbidity HAZY Urine pH 6.0 Urine Specific Benedict 1.028 Urine Protein 100 Urine Glucose (UA) NEG Urine Ketones NEG Urine Occult Blood TRACE Urine Nitrite NEG Urine Bilirubin NEG Urine Urobilinogen 2.0 Urine Leukocyte Esterase MOD Urine RBC 15 Urine WBC 36 Urine Squamous Epithelial Cells 2 Urine Bacteria OCC Urine Hyaline Casts 32 Urine Mucus MANY Microscopic Urinalysis Comment CATH-CULTURE IND Blood Urea Nitrogen 24 Creatinine 0.80 Random Glucose 321 Total Protein 5.2 Albumin 2.2 Calcium Level 8.3 Phosphorus Level 7.0 Magnesium Level 2.5 Alkaline Phosphatase 84 Aspartate Amino Transf (AST/SGOT) 239 Alanine Aminotransferase (ALT/SGPT) 191 Total Bilirubin 0.1 Sodium Level 131 Potassium Level 6.2 Chloride Level 92 Carbon Dioxide Level 23.4 Anion Gap 16 Estimat Glomerular Filtration Rate 62 Total Creatine Kinase 221 Creatine Kinase MB 7.0 Creatine Kinase MB % 3.2 Troponin I 0.19 Lipase 172 Lactic Acid Level 11.8 10.2 Blood Gas Puncture Site ART LINE Blood Gas Patient Temperature 98.6 Blood Gas HCO3 21 Blood Gas Base Excess -5.4 Blood Gas Oxygen Saturation 89 Arterial Blood pH 7.25 Arterial Blood Partial Pressure CO2 49 Arterial Blood Partial Pressure O2 477 Arterial Blood Oxygen Content 18.0 Arterial Blood Carboxyhemoglobin 8.5 Arterial Blood Methemoglobin 1.5 Blood Gas Hemoglobin 13.4 Oxygen Delivery Device VENTILATOR Blood Gas Ventilator Setting Blood Gas Inspired Oxygen 50 Date/Time Source Procedure Growth Status 06/29/17 12:38 Blood Peripheral Aerobic Blood Culture Pending Received 06/29/17 12:38 Blood Peripheral Anaerobic Blood Culture Pending Received 06/29/17 12:45 Sputum Endotracheal Gram Stain Pending Received 06/29/17 12:45 Sputum Endotracheal Sputum Culture Pending Received 06/29/17 10:00 Urine Catheterized Urine Urine Culture Pending Received Result Diagram: 06/29/17 1000 2/1/18 1000 Imaging Last Impressions Chest X-Ray 06/29/17 0934 Signed Impressions: Service Date/Time: June 09:39 - CONCLUSION: 1. Small RIGHT apical pneumothorax. 2. Endotracheal tube and nasogastric tube in place. 3. The lungs are hyperinflated with hazy airspace disease. Luciano Sim MD Septic Shock Reassessment Septic shock perfusion: reassessment completed Caprini VTE Risk Assessment Caprini VTE Risk Assessment: Mod/High Risk (score >= 2) Caprini Risk Assessment Model Point Value = 1 Point Value = 2 Point Value = 3 Point Value = 5 Age 41-60 Minor surgery BMI > 25 kg/m2 Swollen legs Varicose veins or History of unexplained or recurrent spontaneous Oral contraceptives or hormone replacement Sepsis (< 1 month) Serious lung disease, including pneumonia (< 1 month) Abnormal pulmonary function Acute myocardial infarction Congestive heart failure (< 1 month) History of inflammatory bowel disease Medical patient at bed rest Age 61-74 Arthroscopic surgery Major open surgery (> 45 min) Laparoscopic surgery (> 45 min) Malignancy Confined to bed (> 72 hours) Immobilizing plaster cast Central venous access Age >= 75 History of VTE Family history of VTE Factor V Leiden Prothrombin [id number] Lupus anticoagulant Anticardiolipin antibodies Elevated serum homocysteine Heparin-induced thrombocytopenia Other congenital or acquired thrombophilia Stroke (< 1 month) Elective arthroplasty Hip, pelvis, or leg fracture Acute spinal cord injury (< 1 month) Prophylaxis Regimen Total Risk Factor Score Risk Level Prophylaxis Regimen 0-1 Low Early ambulation 2 Moderate Order ONE of the following: *Sequential Compression Device (SCD) *Heparin 5000 units SQ BID 3-4 Higher Order ONE of the following medications: *Heparin 5000 units SQ TID *Enoxaparin/Lovenox 40 mg SQ daily (WT < 150 kg, CrCl > 30 mL/min) *Enoxaparin/Lovenox 30 mg SQ daily (WT < 150 kg, CrCl > 10-29 mL/min) *Enoxaparin/Lovenox 30 mg SQ BID (WT < 150 kg, CrCl > 30 mL/min) AND/OR *Sequential Compression Device (SCD) 5 or more Highest Order ONE of the following medications: *Heparin 5000 units SQ TID (Preferred with Epidurals) *Enoxaparin/Lovenox 40 mg SQ daily (WT < 150 kg, CrCl > 30 mL/min) *Enoxaparin/Lovenox 30 mg SQ daily (WT < 150 kg, CrCl > 10-29 mL/min) *Enoxaparin/Lovenox 30 mg SQ BID (WT < 150 kg, CrCl > 30 mL/min) AND *Sequential Compression Device (SCD) Assessment and Plan Assessment and Plan Assessment: 50 central female with undifferentiated refractory shock and status post PEA arrest with almost certainly anoxic brain injury. The differential for her injury is far reaching and could include a cerebral catastrophe such as a head bleed, GI bleeding, intra-abdominal bleeding, septic shock of unknown origin. Unfortunately, the patient remains too unstable to obtain radiologic imaging. We'll cover broad-spectrum antibiotics. Frequent neuro checks. Avoid sedatives. It does appear the patient has been unresponsive and pulseless for long enough that she is now severely encephalopathic and likely anoxic. As we do not have any family and have tried to locate them unsuccessfully, Leilani, her close personal friend, is at present the best thing we have to a medical decision-maker. At present, Leilani felt that the patient would not want life-sustaining measures, and we will make the patient DNR in accordance with our best understanding of what the patient's wishes might be. We will continue to search for other family members or other information regarding the patient. We'll consult palliative care as they may be useful in helping us discern goals of care. For now, the patient remains very critically ill, and too unstable for repeat imaging. Active problems: Anoxic brain injury Hypoxic ischemic encephalopathy Acute hypoxic and hypercarbic respiratory failure Sided pneumothorax Severe undifferentiated shock: Likely component of septic, cardiogenic, hypovolemic GI bleeding Lactic acidosis Severe anion gap metabolic acidosis Severe acute protein calorie malnutrition Hyperglycemia of critical illness Plan: Admit to ICU Every hour neuro checks Avoid all sedatives No weaning of mechanical ventilation ABG Levo fed, vasopressin, epinephrine for goal map greater than 65 Right-sided pigtail chest tube to suction Maintenance IV fluids Place Ramirez and monitor out put Daily BMP, CBC Marshall culture Broad-spectrum metabolic IV twice a day PPI for possible GI bleed SCDs Hold pharmacologic DVT prophylaxis given questionable GI bleed Consult palliative care This patient remains critically ill with one or more organ systems which are or may become a threat to life. I have spent in excess of 107 minutes discontinuously in the care and management of this patient. This time is exclusive of procedures, and includes, but is not limited to, evaluation of the patient, review of the medical record, discussions with family, consultants, nursing staff, or respiratory therapy, and documentation in the medical record. Dom Rock MD Jun 29, 2017 19:31
--- NOTE | 2017-06-29 19:32 | PD.PROCEDR ---
Procedure Note Procedure Procedure: Arterial Line Placement Left femoral arterial line Diagnosis: Undifferentiated shock Indications: Need for beat to beat hemodynamic monitoring Consent: Emergent Description of the Procedure: The left groin was prepped and draped sterilely. 1% lidocaine was used for local anesthesia. The pulse was located and a needle was advanced into the artery. A 16 gauge, 18 cm catheter was advanced into the artery using a modified Seldinger technique. The catheter was sutured to the skin and a sterile dressing was applied. The catheter was connected to a pressure transducer and an arterial waveform was noted. There were no immediate complications noted. There was minimal EBL. I personally performed the procedure. Dom Rock MD Jun 29, 2017 19:32
--- NOTE | 2017-06-29 19:33 | PD.PROCEDR ---
Procedure Note Procedure Central Line Procedure Note Left IJ 7 Frisian 20 cm triple lumen catheter Diagnosis: Undifferentiated shock Indications: Need for highly potent vasoactive substances Consent: Consent is deemed emergent Anesthesia: None Description of the Procedure: The patient was placed in the supine, mild- Trendelenburg position. The area was prepped and draped sterilely. A 19g needle was inserted under negative pressure aspiration and dark venous blood was obtained. A guidewire was inserted easily without resistance. A small incision was made using a #11 blade. Using a modified Seldinger technique, the dilator and 7 Frisian, 20 cm catheter were advanced over the guidewire without resistance. All ports were aspirated and flushed, and had brisk blood return. The line was secured at 18 cm at the skin using 2-0 silk interrupted sutures. A Biopatch and Transparent sterile dressing were applied. There were no immediate complications noted. There was minimal EBL. The patient tolerated the procedure well. Ultrasound Guidance: Ultrasound guidance was used to identify the left internal jugular vein. The vascular anatomy of the left anterior neck was normal. The vessel was cannulated under direct, real-time ultrasound visualization. After placement of the guidewire, confirmation of the guidewire in the lumen of the vessel was made using ultrasound visualization, before dilation of the tract. A Chest x-ray has been ordered. I personally performed the procedure. Dom Rock MD Jun 29, 2017 19:33
--- NOTE | 2017-06-29 19:34 | PD.PROCEDR ---
Procedure Note Procedure Percutaneous Pigtail Tube Thoracostomy Procedure Note Right 8 Taiwanese pigtail chest tube Diagnosis: Pneumothorax Indications: Large pneumothorax Consent: The consent is emergent Anesthesia: none Description of the Procedure: The patient was placed in the supine position. The arm was abducted above the head and secured. The right lateral chest was prepped and draped sterilely to include the axilla and nipple. 1% Lidocaine was infiltrated subcutaneously and into the tissues down to the periosteum of the rib. The 5th intercostal space was identified. A small incision was made using a #11 blade. At the mid-axillary line, a 8 Fr pigtail catheter with stylet and pencil point trochar introducer were inserted superior to the adjacent rib and the pigtail catheter was advanced over the trochar in a modified Seldinger Technique, easily and without resistance. The catheter was connected to a Pleur-o-vac and connected to [id number] suction. The catheter was sutured to the skin using a 3-0 silk sandal suture and an occlusive dressing was applied. There were no immediate complications noted. There was minimal EBL. The patient tolerated the procedure well. A Chest x-ray has been ordered. I personally performed the procedure. Dom Rock MD Jun 29, 2017 19:34
[2017-06-29] MEDS ORDERED: ONDANSETRON HCL 4 MG/2 ML VIAL IV PUSH PRN (20:00)
[2017-06-29] MEDS: PIPERACIL-TAZO 3.375 GM PREMIX 50 ML IV SCH (20:12)
[2017-06-29] MEDS: CHLORHEXIDINE 0.12% (ORAL KIT) 15 ML CUP MT SCH (20:13)
[2017-06-29] MEDS: PANTOPRAZOLE SODIUM 40 MG VIAL IV PUSH SCH (21:09)
[2017-06-29] MEDS: VASOPRESSIN 40 U/D5W 100 ML Titrate, Post Cardiac Surgery IV PRN ×2 (21:10)
[2017-06-29] MEDS ORDERED: SODIUM CHLOR 0.9% 1000 ML INJ 1,000 ML IV ONE ×2 (23:45)
[2017-06-30] VITALS (36 sets, daily range): BP systolic 66–143; BP diastolic 43–99; PULSE 92–108; RESP 13–36; TEMP 99.8–102.7; O2SAT 86–100
[2017-06-30] MEDS ORDERED: IOHEXOL 350 MG/ML 10 ML VIAL (for RAD DIAG) IVCONTRAST ONE (02:10)
--- NOTE | 2017-06-30 02:13 | RADRPT ---
EXAM DATE/TIME: 06/30/2017 01:51 [facility] COMPARISON: No previous studies available for comparison. INDICATIONS : Altered mental status. Post cardiac arrest RADIATION DOSE: 50.28 CTDIvol (mGy) MEDICAL HISTORY : Non-responsive. SURGICAL HISTORY : Non-responsive. ENCOUNTER: Initial ACUITY: 1 day PAIN SCALE: Non-responsive LOCATION: cranial TECHNIQUE: Multiple contiguous axial images were obtained of the head. Using automated exposure control and adj ustment of the mA and/or kV according to patient size, radiation dose was kept as low as reasonably a chievable to obtain optimal diagnostic quality images. DICOM format image data is available electro nically for review and comparison. FINDINGS: Endotracheal tube is noted as well as an orogastric tube. Air-fluid levels in the paranasal sinuses a re identified. Left mastoid fluid. No fractures. There is diffuse hypodensity in the bilateral cerebr al hemispheres with sulcal effacement. There is hypodensity present within the basal ganglia bilatera lly including the globus pallidus and putamen regions characteristic of areas of infarction. Caudate nuclei are also hypodense bilaterally. There is hypoattenuation of the bilateral thalami. There is ef facement of the fourth ventricle and hypodensity in the cerebellar hemispheres and brainstem. This ch aracteristic of diffuse anoxic injury. CONCLUSION: Imaging appearance characteristic of diffuse anoxic injury. There is mass effect in the posterior fos sa with effacement of the fourth ventricle and probable inferior displacement of the cerebellar tonsi ls at the level of the foramen magnum. Dirk Verma MD on June 30, 2017 at 2:09 Board Certified Radiologist. This report was verified electronically.
--- NOTE | 2017-06-30 02:18 | RADRPT ---
EXAM DATE/TIME: 06/30/2017 01:57 [facility] COMPARISON: No previous studies available for comparison. INDICATIONS : Abdominal pain, distention and bloody stool. IV CONTRAST: 100 cc Omnipaque 350 (iohexol) IV ; Cumulative dose for multiple exams. ORAL CONTRAST: No oral contrast ingested. RADIATION DOSE: 9.14 CTDIvol (mGy) ; Combined studies - Thorax/Abdomen/Pelvis MEDICAL HISTORY : Non-responsive. SURGICAL HISTORY : Non-responsive. ENCOUNTER: Initial ACUITY: 1 day PAIN SCALE: Non-responsive LOCATION: Abdomen. TECHNIQUE: Volumetric scanning of the abdomen and pelvis was performed. Using automated exposure control and ad justment of the mA and/or kV according to patient size, radiation dose was kept as low as reasonably achievable to obtain optimal diagnostic quality images. DICOM format image data is available electro nically for review and comparison. FINDINGS: NG tube terminates in the stomach. There is diffuse body wall edema. Ramirez catheter within the urinar y bladder. Kidneys, spleen, pancreas, adrenals unremarkable. Cholelithiasis is noted. Liver unremarka ble. There is diastasis of the rectus abdominous musculature with anterior bulging of the intra-abdom inal wall identified. There no dilated loops of bowel seen. There is mild circumferential bowel wall thickening involving the rectosigmoid and descending colon as well as the ascending colon characteris tic of colitis. There is a right-sided pneumothorax present with subcutaneous air lateral to the righ t lower thoracic ribs. Bilateral small pleural effusions right greater than left and right nasal or a irspace disease. There is a fracture of the right seventh anterior rib. Degenerative changes of the s pine are noted. There are abnormally thickened loops of jejunum identified. Atherosclerotic plaquing of the aorta and iliac vessels identified. CONCLUSION: 1. Right sided pneumothorax. 2. Small right pleural effusion and basilar airspace disease. 3. Diffuse body wall edema. 4. Mild bowel wall thickening involving the large bowel as well as small bowel loops characteristic o f enteritis and colitis. Dirk Verma MD on June 30, 2017 at 2:12 Board Certified Radiologist. This report was verified electronically.
--- NOTE | 2017-06-30 02:20 | RADRPT ---
EXAM DATE/TIME: 06/30/2017 01:57 [facility] COMPARISON: CT BRAIN W/O CONTRAST, June 30, 2017, 1:51. CT ABDOMEN & PELVIS W CONTRAST, June 30, 2017, 1 :57. INDICATIONS : Shortness of breath. IV CONTRAST: 100 cc Omnipaque 350 (iohexol) IV ; Cumulative dose for multiple exams. RADIATION DOSE: 9.14 CTDIvol (mGy) ; Combined studies - Thorax/Abdomen/Pelvis MEDICAL HISTORY : Non-responsive. SURGICAL HISTORY : Non-responsive. ENCOUNTER: Initial ACUITY: 1 day PAIN SCALE: Non-responsive LOCATION: chest TECHNIQUE: Volumetric scanning of the chest was performed. Using automated exposure control and adjustment of t he mA and/or kV according to patient size, radiation dose was kept as low as reasonably achievable to obtain optimal diagnostic quality images. DICOM format image data is available electronically for review and comparison. Follow-up recommendations for detected pulmonary nodules are based at a minimum on nodule size and pa tient risk factors according to Fleischner Society Guidelines. FINDINGS: There are emphysematous changes identified, a right-sided pneumothorax is noted with a chest tube in place, tip terminating at the right lung apex. There is subcutaneous air. Right sided rib fractures a re noted, small bilateral effusions and right basilar airspace disease. There are fractures of the ri ght sixth, seventh, fifth, fourth, third, second and first anterior ribs. There is also a fracture of the left third, fourth, fifth, sixth anterior ribs. Atherosclerotic plaquing of the aorta seen. No p ericardial fluid. Lung windows demonstrate patchy right lower lobe airspace disease. CONCLUSION: Right-sided pneumothorax with chest tube in place. Emphysema. Bilateral rib fractures. Atherosclerosi sCrow Verma MD on June 30, 2017 at 2:15 Board Certified Radiologist. This report was verified electronically.
[2017-06-30] MEDS: ACETAMINOPHEN 1000 MG/100 ML 100 ML IV PRN ×2 (03:05→14:21)
[2017-06-30] MEDS: PIPERACIL-TAZO 3.375 GM PREMIX 50 ML IV SCH ×4 (03:07→21:22)
[2017-06-30] MEDS: CHLORHEXIDINE GLUCONATE 2 % 1 PACK (2 CLOTHS) TOP SCH (03:07)
[2017-06-30] MEDS: RESP: ALBUTEROL 2.5 MG/IPRATROPIUM 0.5 MG NEB (SCH) INH ×4 (03:09→20:10)
[2017-06-30] MEDS: NOREPINEPHRINE-DEXTROSE DRIP 250 ML IV PRN ×3 (04:35→19:34)
[2017-06-30 04:59] LABS: HEMOGLOBIN 15.9 GM/DL (11.6-15.3); MEAN CELL VOLUME 92.6 FL (80.0-100.0); MEAN CORPUSCULAR HEMOGLOBIN 30.1 PG (27.0-34.0); MEAN CORPUSCULAR HGB CONC 32.5 % (32.0-36.0); MEAN PLATELET VOLUME 7.5 FL (7.0-11.0); PLATELET COUNT 193 TH/MM3 (150-450); RED BLOOD COUNT 5.29 MIL/MM3 (4.00-5.30); RED CELL DISTRIBUTION WIDTH 16.5 % (11.6-17.2); WHITE BLOOD COUNT 20.1 TH/MM3 (4.0-11.0)
[2017-06-30 05:56] LABS: CALCIUM 7.4 MG/DL (8.5-10.1); CREATININE 2.04 MG/DL (0.50-1.00)
[2017-06-30 06:11] LABS: CALCIUM-PROTEIN CORRECTED 8.9 MG/DL (8.5-10.1); TOTAL PROTEIN 4.5 GM/DL (6.4-8.2)
[2017-06-30] MEDS: AMIODARONE INJ 450 MG in SODIUM CHLOR 0.9% (EXCEL) INJ 241 ML IV PRN ×2 (06:15→19:35)
[2017-06-30] MEDS: PANTOPRAZOLE SODIUM 40 MG VIAL IV PUSH SCH ×2 (08:01→21:23)
[2017-06-30] MEDS: CHLORHEXIDINE 0.12% (ORAL KIT) 15 ML CUP MT SCH ×2 (08:03→21:22)
--- NOTE | 2017-06-30 09:18 | HHI.HCPN ---
Palliative care consulted to assist with goals of care for Ms. Block. In review of past records she has been in the ER and psychiatry multiple times throughout the years. Per previous psychiatric admissions Ms. Block is originally from [place], [place] where she lived with her parents and 1 sister. At this time she reported she did not have a good relationship with her sister growing up so they did not keep in any contact over the years. In 2014 Ms. Block reported she had been 3 times resulting in 2 divorces and 1 widowing. Also reported an adult daughter. Requested accurints on patient. Google search conducted, unable to identify any family given limited information. Awaiting results from accurint. Patient is reportedly homeless, attempted to contact [employer] [facility] multiple times to inquire about family/emergency contact. No luck so far with getting anyone on the phone. Will continue to try. I have reached out to legal to see if any other avenues are able to be taken with resources they may have. Advised they have no such resources and if accurint does not produce any results would proceed with next hierarchy for identifying healthcare proxy decision maker. Per pattern scratcher notes, Ms. Block has an acquaintance, Pat, whom reports she is the patient's only "friend" and there is no known family. If family unable to be identified, Pat would be able to serve as health care proxy if she is willing but we need to search for reported family first. If she is unwilling to serve in this role, social work advantage could be consulted. Palliative care will continue to follow throughout hospitalization. Jaylyn Darnell, PHARMACY COORDINATOR Jun 30, 2017 09:18
[2017-06-30] MEDS: VASOPRESSIN 40 U/D5W 100 ML Titrate, Post Cardiac Surgery IV PRN ×2 (14:20)
--- NOTE | 2017-06-30 17:32 | PD.CONS ---
Consult Service Palliative Care . Consult Requested By Dr. Rock . Primary Care Physician Unknown . Reason for Consultation a. To assist with evaluation and management of symptoms including: dyspnea, pain. b. To assist medical decision maker(s) with: better understanding of current medical conditions; weighing benefits/burdens of medical treatment options; making medical treatment decisions. . HPI History of Present Illness Miss Block is a 56-year-old female with past medical history COPD, diabetes, hypertension, Patient presented to [facility] on 06/29/17 after being found unresponsive and PEA arrest for an unknown period of time. EMS intubated the patient after more than 30 minutes of ACLS, ROSC was obtained in the field. Patient was brought in and again had PEA arrest in the emergency department. Emergent bedside echocardiogram demonstrated severely empty LV filling with collapsible IVC. She was started on pressor support and transferred to ICU. Chest x-ray after placing central line demonstrated a large right-sided pneumothorax, most likely due to CPR and rib fractures. Chest tube was emergently placed. Palliative care was consulted to assist with finding decision maker and clarification of treatment goals. . Function/Cognitive Trajectory Patient is reportedly homeless, attempted to contact homeless coalition multiple times to inquire about family/emergency contact. . Review of Systems Other ROS: Unable to obtain ROS, pt unresponsive. . Past Family Social History Coded Allergies: No Allergy Information Available (Unverified , 06/29/17) Past Medical History COPD Diabetes Hypertension Schizophrenia . Past Surgical History Appendectomy Tonsillectomy . Reported Medications Reported Meds & Active Scripts Active Active Prescriptions or Reported Medications Unobtainable . Current Medications Medications (Trade) Dose Ordered Sig/Sabine Route Start Time Stop Time Status Last Admin (Brethine Inj) 1 mg UNSCH PRN SQ 06/29/17 09:45 (Peridex 0.12% Liq) 15 ml BID@08,20 MT 06/29/17 20:00 06/30/17 08:03 (Duoneb Neb) 1 ampule Q6HR NEB INH 06/29/17 16:00 06/30/17 15:00 (Duoneb Neb) 1 ampule Q2HR NEB PRN INH 06/29/17 10:15 Norepinephrine Bitartrate 250 ml @ 7.5 mls/hr TITRATE PRN IV 06/29/17 10:45 06/30/17 08:00 Vasopressin 40 units/Dextrose 100 ml @ 1.5 mls/hr TITRATE PRN IV 06/29/17 11:00 06/30/17 14:20 Epinephrine HCl 2 mg/Dextrose 250 ml @ 22.5 mls/hr TITRATE PRN IV 06/29/17 12:15 Pharmacy Profile Note 0 ml @ 0 mls/hr UNSCH OTHER 06/29/17 13:45 Piperacillin Sod/ Tazobactam Sod 50 ml @ 100 mls/hr Q6H IV 06/29/17 20:00 06/30/17 14:19 Amiodarone HCl 450 mg/Sodium Chloride 250 ml @ 33.33 mls/ hr TITRATE PRN IV 06/29/17 16:00 06/30/17 06:15 (Protonix Inj) 40 mg Q12H IV PUSH 06/29/17 21:00 06/30/17 08:01 (Zofran Inj) 4 mg Q6H PRN IV PUSH 06/29/17 20:00 Miscellaneous Information 1 Q361D XX 06/29/17 19:30 06/29/17 19:30 (Chlorhexidine 2% Cloth) 3 pack Taper DAILY@04 TOP 06/30/17 04:00 06/26/18 03:59 06/30/17 03:07 (Chlorhexidine 2% Cloth) 3 pack UNSCH PRN TOP 06/29/17 19:30 Acetaminophen 100 ml @ 400 mls/hr Q6H PRN IV 06/30/17 01:30 06/30/17 14:21 Family History Patient unable to answer questions. . Substance Use Unknown, patient unable to answer questions. . Psychosocial History Per previous psychiatric admissions Ms. Block is originally from [place], [place] where she lived with her parents and 1 sister. At this time she reported she did not have a good relationship with her sister growing up so they did not keep in any contact over the years. In 2014 Ms. Block reported she had been 3 times resulting in 2 divorces and 1 widowing. Also reported an adult daughter. . Spiritual/Cultural Factors Unknown. . Living Will: Never completed Health Care Surrogate: Never completed Durable Power of Bi Developer: Never completed Health Care Surrogate(s): Patient is incapacitated to make her own health care decisions, she will not regain capacity. No known written advanced directives. According to [place] statutes, health care proxy decision would fall to an adult daughter if the social history obtained from EMR is accurate. We have not been able to find any family. . Today's verbally stated goals: Patient is incapacitated to make her own health care decisions, she will not regain capacity. . Ethical and Legal Issues Patient is incapacitated to make her own health care decisions, she will not regain capacity. No known written advanced directives. According to [place] statutes, health care proxy decision would fall to an adult daughter if the social history obtained from EMR is accurate. We have not been able to find any family. . Physical Exam Vital Signs Date Time Temp Pulse Resp B/P (MAP) Pulse Ox O2 Delivery O2 Flow Rate FiO2 06/30/17 16:00 97 06/30/17 14:52 95 50 06/30/17 14:20 95 80/45 06/30/17 14:00 93 06/30/17 12:00 105 06/30/17 11:03 95 50 06/30/17 10:00 108 06/30/17 08:11 95 50 06/30/17 08:00 50 06/30/17 08:00 99.9 102 20 94/72 (79) 99 105/59 (74) 06/30/17 08:00 102 06/30/17 08:00 103 105/58 06/30/17 06:15 99 102/56 06/30/17 06:00 100 102/55 (71) 91/56 (68) 06/30/17 06:00 100 22 102/55 (71) 97 95/55 (68) 06/30/17 06:00 100 06/30/17 06:00 100 97/56 06/30/17 06:00 100 96/57 06/30/17 06:00 100 97/56 06/30/17 05:11 99 112/61 06/30/17 05:00 99 21 104/60 (75) 92 06/30/17 04:35 97 98/57 06/30/17 04:03 94 50 06/30/17 04:00 100.9 96 21 66/66 (66) 100 106/61 (76) 06/30/17 04:00 50 06/30/17 04:00 96 06/30/17 03:45 95 114/63 2/2/18 03:15 92 100/56 (71) 2/2/18 03:00 93 99/68 (78) 95 106/58 (74) 2/2/18 02:45 95 100/71 (81) 97 2/2/18 02:30 95 118/64 (82) 94 2/2/18 02:25 96 124/63 (83) 91 108/99 (102) 218 02:20 96 132/65 (87) 86 109/85 (93) 218 02:15 98 127/65 (85) 100 139/68 (91) 218 02:14 100 133/64 (87) 143/69 (93) 218 02:00 93 2/07/16 02:00 93 18 100/78 (85) 90 2//18 01:45 96 13 129/78 (95) 218 01:35 100 100 2/18 01:30 99 20 102/68 (79) 97 2//18 01:15 100 104/66 (79) 95 2/2/18 01:15 100 103/66 2//18 01:01 100 119/65 (83) 96 99/62 (74) 2/2/18 01:01 100 119/65 (83) 96 99/62 (74) 2//18 01:00 101 102/63 (76) 97 2/2/18 01:00 101 102/63 2/2/18 01:00 101 102/63 (76) 97 2/2/18 00:45 102 100/62 2/2/18 00:45 102 100/62 (75) 96 2/2/18 00:30 94 119/68 (85) 99 2/2/18 00:30 91 119/68 2/2/18 00:15 93 110/64 (79) 100 2/2/18 00:15 92 110/64 2//18 00:05 96 50 2/2/18 00:00 50 2//18 00:00 100 2/218 00:00 101.0 94 81/48 (59) 99 116/66 (83) 218 00:00 94 116/66 2/1/18 23:43 96 113/65 2/1/18 23:15 96 86/54 06/29/17 23:00 96 20 83/63 (70) 95 87/53 (64) 06/29/17 23:00 96 06/29/17 23:00 96 87/53 06/29/17 22:45 96 86/54 06/29/17 22:30 95 83/53 (63) 95 06/29/17 22:30 95 83/53 06/29/17 22:15 96 89/57 (68) 97 06/29/17 22:01 95 84/56 (65) 95 91/57 (68) 06/29/17 22:00 93 21 94/57 (69) 97 06/29/17 22:00 93 89/56 06/29/17 22:00 95 06/29/17 21:59 94 78/59 (65) 96 92/56 (68) 06/29/17 21:45 93 89/56 (67) 95 06/29/17 21:30 93 92/57 (69) 98 06/29/17 21:15 91 90/54 (66) 96 06/29/17 21:15 92 87/53 06/29/17 21:10 91 92/55 06/29/17 21:10 91 93/55 06/29/17 21:00 92 20 94/56 (69) 96 06/29/17 21:00 92 94/56 06/29/17 20:45 91 87/52 (64) 94 06/29/17 20:45 91 87/52 06/29/17 20:30 91 94/56 (69) 96 06/29/17 20:30 91 94/56 06/29/17 20:15 89 98/58 06/29/17 20:15 89 98/58 (71) 94 06/29/17 20:08 93 50 06/29/17 20:00 87 92/55 (67) 93 06/29/17 20:00 99.6 87 21 93 06/29/17 20:00 87 92/55 06/29/17 20:00 92 06/29/17 20:00 50 06/29/17 19:45 85 82/50 06/29/17 19:30 96 83/52 06/29/17 19:00 105 102/61 06/29/17 19:00 105 102/61 06/29/17 18:00 93 50 06/29/17 18:00 103 06/30/17 07/01/17 19:00 07:00 Output Total 0 ml Balance 0 ml Output Urine Total 0 ml Exam CONSTITUTIONAL/GENERAL: This is a critically ill patient, in no apparent distress. TUBES/LINES/DRAINS: ETT,OG, left subclavian central line, PIV left UA, PIV left hand, PIV right, right chest tube, Ramirez, Scds. SKIN: Ecchymoses on upper extremities. Skin temperature appropriate. Not diaphoretic. HEAD: Atraumatic. Normocephalic. EYES: Pupils non-reactive. ENT: Unable to assess hearing. Nose without bleeding or purulent drainage. Throat unable to visualize due to tubes. NECK: Trachea midline. CARDIOVASCULAR: irregularly irregular. RESPIRATORY/CHEST: Symmetric, unlabored respirations. GASTROINTESTINAL: Abdomen soft, nondistended. Bowel sounds present. Midline abdominal and RLQ healed scars noted. GENITOURINARY: Without palpable bladder distension. Ramirez catheter in place. MUSCULOSKELETAL: Extremities with cyanosis and edema. + mottling. LYMPHATICS: not examined. NEUROLOGICAL: Unresponsive. PSYCHIATRIC: Unresponsive. . Diagnostic Tests Laboratory Laboratory Tests Test 06/29/17 10:00 06/29/17 10:02 06/29/17 10:45 06/29/17 12:23 White Blood Count 8.0 TH/MM3 (4.0-11.0) Red Blood Count 4.73 MIL/MM3 (4.00-5.30) Hemoglobin 14.7 GM/DL (11.6-15.3) Hematocrit 46.8 % (35.0-46.0) Mean Corpuscular Volume 98.9 FL (80.0-100.0) Mean Corpuscular Hemoglobin 31.0 PG (27.0-34.0) Mean Corpuscular Hemoglobin Concent 31.3 % (32.0-36.0) Red Cell Distribution Width 16.8 % (11.6-17.2) Platelet Count 189 TH/MM3 (150-450) Mean Platelet Volume 7.4 FL (7.0-11.0) Neutrophils (%) (Auto) 41.5 % (16.0-70.0) Lymphocytes (%) (Auto) 53.7 % (9.0-44.0) Monocytes (%) (Auto) 3.9 % (0.0-8.0) Eosinophils (%) (Auto) 0.5 % (0.0-4.0) Basophils (%) (Auto) 0.4 % (0.0-2.0) Neutrophils # (Auto) 3.3 TH/MM3 (1.8-7.7) Lymphocytes # (Auto) 4.3 TH/MM3 (1.0-4.8) Monocytes # (Auto) 0.3 TH/MM3 (0-0.9) Eosinophils # (Auto) 0.0 TH/MM3 (0-0.4) Basophils # (Auto) 0.0 TH/MM3 (0-0.2) CBC Comment AUTO DIFF Differential Total Cells Counted 100 Neutrophils % (Manual) 48 % (16-70) Lymphocytes % 40 % (9-44) Monocytes % 10 % (0-8) Neutrophils # (Manual) 4.0 TH/MM3 (1.8-7.7) Myelocytes 2 % (0-0) Nucleated Red Blood Cells 1 /100 WBC (0-0) Differential Comment FINAL DIFF MANUAL Platelet Estimate NORMAL (NORMAL) Platelet Morphology Comment NORMAL (NORMAL) Ovalocytes 1+ (NORMAL) Prothrombin Time 13.3 SEC (9.8-11.6) Prothromb Time International Ratio 1.3 RATIO Activated Partial Thromboplast Time 36.2 SEC (24.3-30.1) Urine Color YELLOW (YELLW/STRAW) Urine Turbidity HAZY (CLEAR) Urine pH 6.0 (5.0-8.5) Urine Specific Walton 1.028 (1.002-1.035) Urine Protein 100 mg/dL (NEG-TRACE) Urine Glucose (UA) NEG mg/dL (NEG) Urine Ketones NEG mg/dL (NEG) Urine Occult Blood TRACE (NEG) Urine Nitrite NEG (NEG) Urine Bilirubin NEG (NEG) Urine Urobilinogen 2.0 MG/DL (LESS THAN Urine Leukocyte Esterase MOD (NEG) Urine RBC 15 /hpf (0-3) Urine WBC 36 /hpf (0-5) Urine Squamous Epithelial Cells 2 /hpf (0-5) Urine Bacteria OCC /hpf (NONE) Urine Hyaline Casts 32 /lpf (RARE) Urine Mucus MANY /lpf (OCC) Microscopic Urinalysis Comment CATH-CULTURE IND Blood Urea Nitrogen 24 MG/DL (7-18) Creatinine 0.80 MG/DL (0.50-1.00) Random Glucose 321 MG/DL (74-106) Total Protein 5.2 GM/DL (6.4-8.2) Albumin 2.2 GM/DL (3.4-5.0) Calcium Level 8.3 MG/DL (8.5-10.1) Phosphorus Level 7.0 MG/DL (2.5-4.9) Magnesium Level 2.5 MG/DL (1.5-2.5) Alkaline Phosphatase 84 U/L (45-117) Aspartate Amino Transf (AST/SGOT) 239 U/L (15-37) Alanine Aminotransferase (ALT/SGPT) 191 U/L (10-53) Total Bilirubin 0.1 MG/DL (0.2-1.0) Sodium Level 131 MEQ/L (136-145) Potassium Level 6.2 MEQ/L (3.5-5.1) Chloride Level 92 MEQ/L (98-107) Carbon Dioxide Level 23.4 MEQ/L (21.0-32.0) Anion Gap 16 MEQ/L (5-15) Estimat Glomerular Filtration Rate 62 ML/MIN (>89) Total Creatine Kinase 221 U/L (26-192) Creatine Kinase MB 7.0 NG/ML (0.5-3.6) Creatine Kinase MB % 3.2 % (0.0-4.0) Troponin I 0.19 NG/ML (0.02-0.05) Lipase 172 U/L (73-393) Lactic Acid Level 11.8 mmol/L (0.4-2.0) 10.2 mmol/L (0.4-2.0) Blood Gas Puncture Site ART LINE Blood Gas Patient Temperature 98.6 Blood Gas HCO3 21 mmol/L (22-26) Blood Gas Base Excess -5.4 mmol/L (-2-2) Blood Gas Oxygen Saturation 89 % (90-100) Arterial Blood pH 7.25 (7.380-7.420) Arterial Blood Partial Pressure CO2 49 mmHg (38-42) Arterial Blood Partial Pressure O2 477 mmHg (61-120) Arterial Blood Oxygen Content 18.0 Vol % (12.0-20.0) Arterial Blood Carboxyhemoglobin 8.5 % (0-4) Arterial Blood Methemoglobin 1.5 % (0-2) Blood Gas Hemoglobin 13.4 G/DL (12.0-16.0) Oxygen Delivery Device VENTILATOR Blood Gas Ventilator Setting Blood Gas Inspired Oxygen 50 % Test 06/29/17 23:05 06/30/17 00:00 06/30/17 04:20 Hemoglobin 17.0 GM/DL (11.6-15.3) 15.9 GM/DL (11.6-15.3) Nasal Screen MRSA (PCR) MRSA DETECTED (NOT DETECT) White Blood Count 20.1 TH/MM3 (4.0-11.0) Red Blood Count 5.29 MIL/MM3 (4.00-5.30) Hematocrit 49.0 % (35.0-46.0) Mean Corpuscular Volume 92.6 FL (80.0-100.0) Mean Corpuscular Hemoglobin 30.1 PG (27.0-34.0) Mean Corpuscular Hemoglobin Concent 32.5 % (32.0-36.0) Red Cell Distribution Width 16.5 % (11.6-17.2) Platelet Count 193 TH/MM3 (150-450) Mean Platelet Volume 7.5 FL (7.0-11.0) Blood Urea Nitrogen 38 MG/DL (7-18) Creatinine 2.04 MG/DL (0.50-1.00) Random Glucose 134 MG/DL (74-106) Total Protein 4.5 GM/DL (6.4-8.2) Calcium Level 7.4 MG/DL (8.5-10.1) Sodium Level 140 MEQ/L (136-145) Potassium Level 4.6 MEQ/L (3.5-5.1) Chloride Level 106 MEQ/L (98-107) Carbon Dioxide Level 23.0 MEQ/L (21.0-32.0) Anion Gap 11 MEQ/L (5-15) Estimat Glomerular Filtration Rate 25 ML/MIN (>89) Protein Corrected Calcium 8.9 MG/DL (8.5-10.1) Random Vancomycin Level 21.8 COMMENT Result Diagram: 06/30/17 0420 06/30/17 0420 Microbiology Microbiology Date/Time Source Procedure Growth Status 06/29/17 12:38 Blood Peripheral Aerobic Blood Culture - Preliminary NO GROWTH IN 1 DAY Resulted 06/29/17 12:38 Blood Peripheral Anaerobic Blood Culture - Preliminary NO GROWTH IN 1 DAY Resulted 06/29/17 11:30 Blood Peripheral Aerobic Blood Culture - Preliminary NO GROWTH IN 1 DAY Resulted 06/29/17 11:30 Blood Peripheral Anaerobic Blood Culture - Preliminary NO GROWTH IN 1 DAY Resulted 06/29/17 10:00 Blood Peripheral Aerobic Blood Culture - Preliminary NO GROWTH IN 1 DAY Resulted 06/29/17 10:00 Blood Peripheral Anaerobic Blood Culture - Preliminary NO GROWTH IN 1 DAY Resulted 06/29/17 09:55 Blood Peripheral Aerobic Blood Culture - Preliminary NO GROWTH IN 1 DAY Resulted 06/29/17 09:55 Blood Peripheral Anaerobic Blood Culture - Preliminary NO GROWTH IN 1 DAY Resulted 06/29/17 12:45 Sputum Endotracheal Gram Stain - Final Resulted 06/29/17 12:45 Sputum Endotracheal Sputum Culture - Preliminary HEAVY GROWTH NORMAL RESPIRATORY DIVINE... Resulted 06/29/17 10:06 Nasal Aspirate Influenza Types A,B Antigen (NORBERTO) - Final NEGATIVE FOR FLU A AND B ANTIGEN.... Complete 06/29/17 10:00 Urine Catheterized Urine Urine Culture - Preliminary NO GROWTH IN 24 HOURS. Resulted Imaging Last Impressions Chest CT 06/30/17 Signed Impressions: Service Date/Time: Friday, June 30, 2017 01:57 - CONCLUSION: Right-sided pneumothorax with chest tube in place. Emphysema. Bilateral rib fractures. Atherosclerosis. Dirk Verma MD Abdomen/Pelvis CT 06/30/17 Signed Impressions: Service Date/Time: Friday, June 30, 2017 01:57 - CONCLUSION: 1. Right sided pneumothorax. 2. Small right pleural effusion and basilar airspace disease. 3. Diffuse body wall edema. 4. Mild bowel wall thickening involving the large bowel as well as small bowel loops characteristic of enteritis and colitis. Dirk Verma MD Head CT 06/29/17933 Signed Impressions: Service Date/Time: Friday, June 30, 2017 01:51 - CONCLUSION: Imaging appearance characteristic of diffuse anoxic injury. There is mass effect in the posterior fossa with effacement of the fourth ventricle and probable inferior displacement of the cerebellar tonsils at the level of the foramen magnum. Dirk Verma MD Chest X-Ray 06/29/17933 Signed Impressions: Service Date/Time: June 09:39 - CONCLUSION: 1. Small RIGHT apical pneumothorax. 2. Endotracheal tube and nasogastric tube in place. 3. The lungs are hyperinflated with hazy airspace disease. Luciano Sim MD Procedures * 06/29/17 - intubated and central line placed. Patient/Family Conference Present at Family Conference: No family identified. Assessment and Plan Disease Oriented Problem List: (1) Respiratory failure (2) Cardiopulmonary arrest (3) Anoxic brain injury (4) Hypoxic encephalopathy (5) Pneumothorax (6) Shock (7) GI bleed (8) Lactic acidosis (9) Severe protein-calorie malnutrition (10) Hyperglycemia Symptom Scale: (1) Pain 0-10 Scale: Unable to quantify (2) Dyspnea 0-10 Scale: Unable to quantify Pertinent Non-Medical Issues Psychosocial: Per previous psychiatric admissions Ms. Block is originally from [place], [place] where she lived with her parents and 1 sister. At this time she reported she did not have a good relationship with her sister growing up so they did not keep in any contact over the years. In 2014 Ms. Block reported she had been 3 times resulting in 2 divorces and 1 widowing. Also reported an adult daughter. Spiritual: Unknown. Legal: Patient is incapacitated to make her own health care decisions, she will not regain capacity. No known written advanced directives. According to [place] statutes, health care proxy decision would fall to an adult daughter if the social history obtained from EMR is accurate. We have not been able to find any family. Ethical issues impacting care: No known concerns at this time. . Important Contacts No family information or contacts. . Prognosis This patient remains critically ill with one or more organ systems which are or may become a threat to life. . Code Status: No Code Plan * Patient is incapacitated to make her own health care decisions, she will not regain capacity. No known written advanced directives. According to [place] statutes, health care proxy decision would fall to an adult daughter if the social history obtained from EMR is accurate. We have not been able to find any family. * NO CODE * Case management consulted to assist with finding decision maker and requested ACCURINT report. Palliative care will clarify treatment goals once decision maker has been identified. If no family identified may need to contact [employer] to assist with medical decision making. * SYMPTOMS: Pain: unresponsive off sedation. Dyspnea: on mech vent. No new medication recommendations at this time. * Palliative care will continue to follow to clarify goals once decision maker has been identified. . Thank you for the opportunity to participate in the care of Ms. Block. Marlene Gregory Jun 30, 2017 17:31
--- NOTE | 2017-06-30 18:26 | HHI.CCPN ---
Subjective Remarks/Hospital Course Hospital Course: This is a 56-year-old female who arrived is imaging to after being found unresponsive and PEA arrest for an unknown period of time. EMS intubated the patient after more than 30 minutes of ACLS, ROSC was obtained in the field. Patient was brought in and again had PEA arrest in the emergency department. After ROSC was obtained I was emergently called and came down immediately to evaluate the patient. The patient on emergent bedside echocardiogram demonstrated severely empty LV filling with collapsible IVC. I gave her 4 L of crystalloid infusion. She was started on levo fed, epinephrine. She was emergently brought to the ICU. I placed arterial line, central line. Resuscitation was ongoing. The patient at no time regained any neurologic exam. Chest x-ray after placing central line demonstrated a large right-sided pneumothorax, contralateral to the sciatic place a central line on. This is most likely due to CPR and rib fractures. I emergently placed chest tube, see separate procedure note for details. I was able to contact a person named Leilani, which is the only phone number the patient had in her purse with her. Leilani stated that she was the closest thing the patient had to a friend, and the patient had no family that she know of. Past said that occasionally she would give her warm blankets, or hot meal. Passive the patient was homeless and had no other friends. Leilani did tell me that she did not think that the patient would want aggressive life prolonging measures, is much as she knew the patient. Due to her ongoing hemodynamic instability, the patient is too unstable to undergo radiologic imaging to identify source of instability. Subjective: 2/2: unresponsive. on vent. in shock. no improvements. no family available. still searching. palliative consulted. per "close personal friend", would not want aggressive therapy. will not escalate above what we are currently doing. Objective Vital Signs Date Time Temp Pulse Resp B/P (MAP) Pulse Ox O2 Delivery O2 Flow Rate FiO2 06/30/17 18:00 95 108/63 (78) 118/62 (80) 06/30/17 16:00 100.8 93 06/30/17 16:00 50 06/30/17 08:00 20 06/29/17 10:00 Ventilator Intake and Output 06/30/17 06/30/17 07/01/17 08:00 16:00 00:00 Intake Total 2730 ml Output Total 211 ml 0 ml 0 ml Balance 2519 ml 0 ml 0 ml Result Diagram: 06/30/17 0420 06/30/17 0420 Other Results Microbiology Date/Time Source Procedure Growth Status 06/29/17 10:06 Nasal Aspirate Influenza Types A,B Antigen (NORBERTO) - Final NEGATIVE FOR FLU A AND B ANTIGEN.... Complete Imaging Last Impressions Chest X-Ray 06/29/17 0934 Signed Impressions: Service Date/Time: June 09:39 - CONCLUSION: 1. Small RIGHT apical pneumothorax. 2. Endotracheal tube and nasogastric tube in place. 3. The lungs are hyperinflated with hazy airspace disease. Luciano Sim MD Objective Remarks GENERAL: Middle-aged female who appears much older than stated age, lying in bed , intubated, unresponsive HEENT: Normocephalic. Atraumatic. Pupils 6 mm, bilaterally, fixed, dilated, nonreactive. NECK: Trachea is midline. There is no JVD. CHEST: Equal chest rise. Coarse breath sounds throughout. CARDIOVASCULAR: Tachycardic rate, irregularly irregular rhythm. ABDOMEN: Soft, nontender, nondistended. No guarding. Large ventral hernia without evidence of incarceration MUSCULOSKELETAL: Pulses 2+. No peripheral edema. Extremities are mottled poorly perfused NEUROLOGICAL: RASS -5. GCS 3. No movement in any extremity deep nailbed pressure. Pupils fixed and dilated. Negative corneals. Negative cough. Negative gag. Negative oculocephalic reflex. Has never received any sedating or paralytic drugs since EMS found her. Does not over breathe the vent. A/P Assessment and Plan Assessment: 56y female with undifferentiated refractory shock and status post PEA arrest with anoxic brain injury. remains in shock. remains on vasopressors. will continue to search for family. continue supportive care, although will not escalate care at this point. will repeat head CT tomorrow: could progress to brain in the next 48h. Active problems: Anoxic brain injury Hypoxic ischemic encephalopathy Acute hypoxic and hypercarbic respiratory failure Sided pneumothorax Severe undifferentiated shock: Likely component of septic, cardiogenic, hypovolemic GI bleeding Lactic acidosis Severe anion gap metabolic acidosis Severe acute protein calorie malnutrition Hyperglycemia of critical illness Plan: Every hour neuro checks Avoid all sedatives No weaning of mechanical ventilation Levophed, vasopressin, epinephrine for goal map greater than 65 Right-sided pigtail chest tube to suction Maintenance IV fluids continue miguel Daily BMP, CBC Broad-spectrum abx IV twice a day PPI for possible GI bleed SCDs Hold pharmacologic DVT prophylaxis given questionable GI bleed Consult palliative care Dom Rock MD Jun 30, 2017 18:26
[2017-07-01] VITALS (11 sets, daily range): BP systolic 117–145; BP diastolic 71–82; PULSE 63–90; RESP 20; TEMP 95.8–99.2; O2SAT 99–100
[2017-07-01] MEDS: PIPERACIL-TAZO 3.375 GM PREMIX 50 ML IV SCH ×3 (03:16→14:00)
[2017-07-01] MEDS: RESP: ALBUTEROL 2.5 MG/IPRATROPIUM 0.5 MG NEB (SCH) INH ×3 (03:57→14:28)
[2017-07-01] MEDS: CHLORHEXIDINE GLUCONATE 2 % 1 PACK (2 CLOTHS) TOP SCH (04:00)
[2017-07-01 06:18] LABS: HEMATOCRIT 42.9 % (35.0-46.0); MEAN CORPUSCULAR HEMOGLOBIN 30.1 PG (27.0-34.0); MEAN CORPUSCULAR HGB CONC 32.7 % (32.0-36.0); MEAN PLATELET VOLUME 8.6 FL (7.0-11.0); PLATELET COUNT 140 TH/MM3 (150-450); RED BLOOD COUNT 4.66 MIL/MM3 (4.00-5.30); RED CELL DISTRIBUTION WIDTH 16.6 % (11.6-17.2); WHITE BLOOD COUNT 19.6 TH/MM3 (4.0-11.0)
[2017-07-01 06:44] LABS: CALCIUM 6.7 MG/DL (8.5-10.1); CREATININE 3.34 MG/DL (0.50-1.00)
[2017-07-01 07:12] LABS: CALCIUM-PROTEIN CORRECTED 8.1 MG/DL (8.5-10.1); TOTAL PROTEIN 4.5 GM/DL (6.4-8.2)
[2017-07-01] MEDS: CHLORHEXIDINE 0.12% (ORAL KIT) 15 ML CUP MT SCH (08:30)
[2017-07-01] MEDS: PANTOPRAZOLE SODIUM 40 MG VIAL IV PUSH SCH (08:30)
--- NOTE | 2017-07-01 10:10 | HHI.CCPN ---
Subjective Remarks/Hospital Course Hospital Course: This is a 56-year-old female who arrived is imaging to after being found unresponsive and PEA arrest for an unknown period of time. EMS intubated the patient after more than 30 minutes of ACLS, ROSC was obtained in the field. Patient was brought in and again had PEA arrest in the emergency department. After ROSC was obtained I was emergently called and came down immediately to evaluate the patient. The patient on emergent bedside echocardiogram demonstrated severely empty LV filling with collapsible IVC. I gave her 4 L of crystalloid infusion. She was started on levo fed, epinephrine. She was emergently brought to the ICU. I placed arterial line, central line. Resuscitation was ongoing. The patient at no time regained any neurologic exam. Chest x-ray after placing central line demonstrated a large right-sided pneumothorax, contralateral to the sciatic place a central line on. This is most likely due to CPR and rib fractures. I emergently placed chest tube, see separate procedure note for details. I was able to contact a person named Leilani, which is the only phone number the patient had in her purse with her. Leilani stated that she was the closest thing the patient had to a friend, and the patient had no family that she know of. Past said that occasionally she would give her warm blankets, or hot meal. Passive the patient was homeless and had no other friends. Leilani did tell me that she did not think that the patient would want aggressive life prolonging measures, is much as she knew the patient. Due to her ongoing hemodynamic instability, the patient is too unstable to undergo radiologic imaging to identify source of instability. Subjective: 2/2: unresponsive. on vent. in shock. no improvements. no family available. still searching. palliative consulted. per "close personal friend", would not want aggressive therapy. will not escalate above what we are currently doing. 2/3: no improvements. will repeat head CT today to eval for degree of cerebral edema. still in shock. still unresponsive. Objective Vital Signs Date Time Temp Pulse Resp B/P (MAP) Pulse Ox O2 Delivery O2 Flow Rate FiO2 07/01/17 08:19 100 40 07/01/17 06:00 75 119/74 (89) 122/75 (91) 07/01/17 04:00 99.2 20 06/29/17 10:00 Ventilator Intake and Output 07/01/17 07/01/1718 07:59 15:59 23:59 Intake Total 367 ml Output Total 292 ml Balance 75 ml Result Diagram: 07/01/17 04007/01/17 040 Other Results Microbiology Date/Time Source Procedure Growth Status 06/29/17 10:06 Nasal Aspirate Influenza Types A,B Antigen ([facility]) - Final NEGATIVE FOR FLU A AND B ANTIGEN.... Complete 06/29/17 10:00 Urine Catheterized Urine Urine Culture - Final NO GROWTH IN 48 HOURS. Complete Imaging Last Impressions Chest X-Ray 06/29/17 0934 Signed Impressions: Service Date/Time: June 09:39 - CONCLUSION: 1. Small RIGHT apical pneumothorax. 2. Endotracheal tube and nasogastric tube in place. 3. The lungs are hyperinflated with hazy airspace disease. Luciano Sim MD Objective Remarks GENERAL: Middle-aged female who appears much older than stated age, lying in bed , intubated, unresponsive HEENT: Normocephalic. Atraumatic. Pupils 6 mm, bilaterally, fixed, dilated, nonreactive. NECK: Trachea is midline. There is no JVD. CHEST: Equal chest rise. Coarse breath sounds throughout. CARDIOVASCULAR: Tachycardic rate, irregularly irregular rhythm. ABDOMEN: Soft, nontender, nondistended. No guarding. Large ventral hernia without evidence of incarceration MUSCULOSKELETAL: Pulses 2+. No peripheral edema. Extremities are mottled poorly perfused NEUROLOGICAL: RASS -5. GCS 3. No movement in any extremity deep nailbed pressure. Pupils fixed and dilated. Negative corneals. Negative cough. Negative gag. Negative oculocephalic reflex. Has never received any sedating or paralytic drugs since EMS found her. Does not over breathe the vent. A/P Assessment and Plan Assessment: 56y female with undifferentiated refractory shock and status post PEA arrest with anoxic brain injury. remains in shock. remains on vasopressors. will continue to search for family. continue supportive care, although will not escalate care at this point. will repeat head CT today: could progress to brain in the next 48h. Active problems: Anoxic brain injury Hypoxic ischemic encephalopathy Acute hypoxic and hypercarbic respiratory failure Sided pneumothorax Severe undifferentiated shock: Likely component of septic, cardiogenic, hypovolemic GI bleeding Lactic acidosis Severe anion gap metabolic acidosis Severe acute protein calorie malnutrition Hyperglycemia of critical illness Plan: Every hour neuro checks Avoid all sedatives No weaning of mechanical ventilation Levophed, vasopressin, epinephrine for goal map greater than 65 Right-sided pigtail chest tube to suction Maintenance IV fluids continue miguel Daily BMP, CBC Broad-spectrum abx IV twice a day PPI for possible GI bleed SCDs Hold pharmacologic DVT prophylaxis given questionable GI bleed Consult palliative care Dom Rock MD Jul 01, 2017 10:10
[2017-07-01] MEDS ORDERED: SODIUM BICARBONATE 8.4% INJ 50 ML ONE (14:04)
--- NOTE | 2017-07-01 15:42 | DEATH SUM ---
Pronouncement Date Pronounced : Jul 01, 2017 Time Of : 15:29 Pronouncement Called to pronounce of patient. Identified patient as Lizbeth Block with wrist band MR# [id number]. Patient with severe neurologic insult and anoxic brain injury. no sedatives x [address] Sen and myself independently evaluated the patient. I performed apnea test which demonstrated no spontaneous respirations. Her clinical exam is consistent with brain . Thus, I declared the patient by neurologic criteria on 2017 at 15:29. I notified her close personal friend Roger Rice who was in the room with me. Preliminary Cause of : Brain Dom Rock MD Jul 01, 2017 15:42
--- NOTE | 2017-07-01 15:43 | HHI.DS ---
Summary Note Date of : Jul 01, 2017 Time Of : 15:29 Admission Date Jun 29, 2017 at 09:56 Admitting Diagnosis cardiac arrest, respiratory failure Diagnosis at Time of : Brief History This is a 56-year-old female who arrived is imaging to after being found unresponsive and PEA arrest for an unknown period of time. EMS intubated the patient after more than 30 minutes of ACLS, ROSC was obtained in the field. Patient was brought in and again had PEA arrest in the emergency department. After ROSC was obtained I was emergently called and came down immediately to evaluate the patient. The patient on emergent bedside echocardiogram demonstrated severely empty LV filling with collapsible IVC. I gave her 4 L of crystalloid infusion. She was started on levo fed, epinephrine. She was emergently brought to the ICU. I placed arterial line, central line. Resuscitation was ongoing. The patient at no time regained any neurologic exam. Chest x-ray after placing central line demonstrated a large right-sided pneumothorax, contralateral to the sciatic place a central line on. This is most likely due to CPR and rib fractures. I emergently placed chest tube, see separate procedure note for details. I was able to contact a person named Leilani, which is the only phone number the patient had in her purse with her. Pat stated that she was the closest thing the patient had to a friend, and the patient had no family that she know of. Past said that occasionally she would give her warm blankets, or hot meal. Passive the patient was homeless and had no other friends. Pat did tell me that she did not think that the patient would want aggressive life prolonging measures, is much as she knew the patient. Due to her ongoing hemodynamic instability, the patient is too unstable to undergo radiologic imaging to identify source of instability. CBC/BMP: 07/01/17 0400 07/01/17 0400 Significant Findings Laboratory Tests Test 06/29/17 10:00 06/29/17 10:02 06/29/17 10:45 06/29/17 12:23 Hematocrit 46.8 % (35.0-46.0) Mean Corpuscular Hemoglobin Concent 31.3 % (32.0-36.0) Lymphocytes (%) (Auto) 53.7 % (9.0-44.0) Monocytes % 10 % (0-8) Myelocytes 2 % (0-0) Nucleated Red Blood Cells 1 /100 WBC (0-0) Ovalocytes 1+ (NORMAL) Prothrombin Time 13.3 SEC (9.8-11.6) Activated Partial Thromboplast Time 36.2 SEC (24.3-30.1) Urine Turbidity HAZY (CLEAR) Urine Protein 100 mg/dL (NEG-TRACE) Urine Occult Blood TRACE (NEG) Urine Leukocyte Esterase MOD (NEG) Urine RBC 15 /hpf (0-3) Urine WBC 36 /hpf (0-5) Urine Bacteria OCC /hpf (NONE) Urine Mucus MANY /lpf (OCC) Blood Urea Nitrogen 24 MG/DL (7-18) Random Glucose 321 MG/DL (74-106) Total Protein 5.2 GM/DL (6.4-8.2) Albumin 2.2 GM/DL (3.4-5.0) Calcium Level 8.3 MG/DL (8.5-10.1) Phosphorus Level 7.0 MG/DL (2.5-4.9) Aspartate Amino Transf (AST/SGOT) 239 U/L (15-37) Alanine Aminotransferase (ALT/SGPT) 191 U/L (10-53) Total Bilirubin 0.1 MG/DL (0.2-1.0) Sodium Level 131 MEQ/L (136-145) Potassium Level 6.2 MEQ/L (3.5-5.1) Chloride Level 92 MEQ/L (98-107) Anion Gap 16 MEQ/L (5-15) Estimat Glomerular Filtration Rate 62 ML/MIN (>89) Total Creatine Kinase 221 U/L (26-192) Creatine Kinase MB 7.0 NG/ML (0.5-3.6) Troponin I 0.19 NG/ML (0.02-0.05) Lactic Acid Level 11.8 mmol/L (0.4-2.0) 10.2 mmol/L (0.4-2.0) Blood Gas HCO3 21 mmol/L (22-26) Blood Gas Base Excess -5.4 mmol/L (-2-2) Blood Gas Oxygen Saturation 89 % (90-100) Arterial Blood pH 7.25 (7.380-7.420) Arterial Blood Partial Pressure CO2 49 mmHg (38-42) Arterial Blood Partial Pressure O2 477 mmHg (61-120) Arterial Blood Carboxyhemoglobin 8.5 % (0-4) Test 06/29/17 23:05 06/30/17 00:00 06/30/17 04:20 07/01/17 04:00 Hemoglobin 17.0 GM/DL (11.6-15.3) 15.9 GM/DL (11.6-15.3) White Blood Count 20.1 TH/MM3 (4.0-11.0) 19.6 TH/MM3 (4.0-11.0) Hematocrit 49.0 % (35.0-46.0) Blood Urea Nitrogen 38 MG/DL (7-18) 51 MG/DL (7-18) Creatinine 2.04 MG/DL (0.50-1.00) 3.34 MG/DL (0.50-1.00) Random Glucose 134 MG/DL (74-106) 184 MG/DL (74-106) Total Protein 4.5 GM/DL (6.4-8.2) 4.5 GM/DL (6.4-8.2) Calcium Level 7.4 MG/DL (8.5-10.1) 6.7 MG/DL (8.5-10.1) Estimat Glomerular Filtration Rate 25 ML/MIN (>89) 14 ML/MIN (>89) Platelet Count 140 TH/MM3 (150-450) Chloride Level 108 MEQ/L (98-107) Protein Corrected Calcium 8.1 MG/DL (8.5-10.1) Test 07/01/17 13:24 07/01/17 14:28 07/01/17 14:55 07/01/17 15:18 Blood Gas HCO3 19 mmol/L (22-26) 21 mmol/L (22-26) Blood Gas Base Excess -5.0 mmol/L (-2-2) -2.8 mmol/L (-2-2) -3.8 mmol/L (-2-2) -3.4 mmol/L (-2-2) Arterial Blood Partial Pressure CO2 31 mmHg (38-42) 36 mmHg (38-42) 44 mmHg (38-42) 46 mmHg (38-42) Arterial Blood Partial Pressure O2 446 mmHg (61-120) 522 mmHg (61-120) 516 mmHg (61-120) 481 mmHg (61-120) Arterial Blood pH 7.31 (7.380-7.420) 7.30 (7.380-7.420) Test 07/01/17 15:20 Blood Gas Base Excess -3.9 mmol/L (-2-2) Arterial Blood pH 7.19 (7.380-7.420) Arterial Blood Partial Pressure CO2 62 mmHg (38-42) Arterial Blood Partial Pressure O2 469 mmHg (61-120) Imaging Last Impressions Chest X-Ray 06/29/17 0934 Signed Impressions: Service Date/Time: June 09:39 - CONCLUSION: 1. Small RIGHT apical pneumothorax. 2. Endotracheal tube and nasogastric tube in place. 3. The lungs are hyperinflated with hazy airspace disease. Luciano Sim MD Hospital Course This is a 56-year-old female who arrived is imaging to after being found unresponsive and PEA arrest for an unknown period of time. EMS intubated the patient after more than 30 minutes of ACLS, ROSC was obtained in the field. Patient was brought in and again had PEA arrest in the emergency department. After ROSC was obtained I was emergently called and came down immediately to evaluate the patient. The patient on emergent bedside echocardiogram demonstrated severely empty LV filling with collapsible IVC. I gave her 4 L of crystalloid infusion. She was started on levo fed, epinephrine. She was emergently brought to the ICU. I placed arterial line, central line. Resuscitation was ongoing. The patient at no time regained any neurologic exam. Chest x-ray after placing central line demonstrated a large right-sided pneumothorax, contralateral to the sciatic place a central line on. This is most likely due to CPR and rib fractures. I emergently placed chest tube, see separate procedure note for details. I was able to contact a person named Leilani, which is the only phone number the patient had in her purse with her. Leilani stated that she was the closest thing the patient had to a friend, and the patient had no family that she know of. Past said that occasionally she would give her warm blankets, or hot meal. Passive the patient was homeless and had no other friends. Leilani did tell me that she did not think that the patient would want aggressive life prolonging measures, is much as she knew the patient. Due to her ongoing hemodynamic instability, the patient is too unstable to undergo radiologic imaging to identify source of instability. 2/2: unresponsive. on vent. in shock. no improvements. no family available. still searching. palliative consulted. per "close personal friend", would not want aggressive therapy. will not escalate above what we are currently doing. 2/: no improvements. will repeat head CT today to eval for degree of cerebral edema. still in shock. still unresponsive. Patient declared by neurologic criteria at 15:29 on 07/01. Dom Rock MD Jul 01, 2017 15:43
[2017-07-01] MEDS ORDERED: VANCOMYCIN 1 GM/200 ML PREMIX IV ONE (16:00)
[2017-07-01] MEDS ORDERED: PIPERACIL-TAZO 2.25 GM PREMIX 50 ML IV SCH (20:00)
== END 2017-07-01 13:29 | disposition expired | DRG 208 ==
LOC: EDBD 09:06 → NEPE 09:06 → MERGE 09:56 → EDBD 09:56 → NEDA 09:56 → HIMN 10:23
PROVIDERS: ADMIT Internal Medicine Critical Care Medicine; ATTEND Internal Medicine Critical Care Medicine
PROC: 04HL33Z Insertion of Infusion Device into Left Femoral Artery, Percutaneous Approach (ICD-10-PCS; principal; 2017-06-29)
PROC: 5A1945Z Respiratory Ventilation, 24-96 Consecutive Hours (ICD-10-PCS; 2017-06-29)
PROC: 05HN33Z Insertion of Infusion Device into Left Internal Jugular Vein, Percutaneous Approach (ICD-10-PCS; 2017-06-29)
PROC: 0W9930Z Drainage of Right Pleural Cavity with Drainage Device, Percutaneous Approach (ICD-10-PCS; 2017-06-29)
PROC: 0BH17EZ Insertion of Endotracheal Airway into Trachea, Via Natural or Artificial Opening (ICD-10-PCS; 2017-06-29)
PROC: 5A12012 Performance of Cardiac Output, Single, Manual (ICD-10-PCS; 2017-06-29)
DX: J96.01 Acute respiratory failure with hypoxia (principal); I46.9 Cardiac arrest, cause unspecified; R57.9 Shock, unspecified; E43 Unspecified severe protein-calorie malnutrition; S22.43XA Multiple fractures of ribs, bilateral, initial encounter for closed fracture; E11.65 Type 2 diabetes mellitus with hyperglycemia; G93.1 Anoxic brain damage, not elsewhere classified; J93.83 Other pneumothorax; E87.2 Acidosis; X58.XXXA Exposure to other specified factors, initial encounter; J96.02 Acute respiratory failure with hypercapnia; Z66 Do not resuscitate; Z68.23 Body mass index [BMI] 23.0-23.9, adult; R73.9 Hyperglycemia, unspecified; J44.9 Chronic obstructive pulmonary disease, unspecified; I10 Essential (primary) hypertension; F20.9 Schizophrenia, unspecified; Z59.0 Homelessness
CPT/HCPCS: 31500; 32551; 36556; 36600; 70450; 71045; 71260; 74177; 76937; 80048; 80053; 80202; 81001; 82550; 82552; 82805; 83605; 83690; 83735; 84100; 84155; 84484; 84702; 85007; 85018; 85027; 85610; 85730; 86403; 87040; 87070; 87077; 87086; 87184; 87186; 87205; 87641; 87804; 92950; 93005; 94002; 94003; 94640; 94664; C9113; J0131; J0282; J1720; J2543; J3370; J7030; J7050; Q9967